=== PATIENT | female | born 1930 | race Caucasian/White ===

== ENCOUNTER 2017-09-05 20:06 | Emergency (ER) | payer MEDICARE ==
[2017-09-05 21:11] LABS: Anion Gap 17 mmol/L (10-20); BUN (Urea Nitrogen) 19 mg/dL (9.8-20.1); Calc. Creatinine Clearance 0 mL/min (70-130); Calcium 9.8 mg/dL (7.8-10.44); Carbon Dioxide 24 mmol/L (23-31); Chloride 106 mmol/L (98-107); Estimated GFR-MDRD 79
[2017-09-05] MEDS ORDERED: cloNIDine 0.1 MG TAB ONE (21:12)
--- NOTE | 2017-09-05 21:39 | CT ---
CT BRAIN WITHOUT CONTRAST: Date: 09/05/17 HISTORY: Elevated blood pressure. Headache. COMPARISON: CT brain dated 11/28/16. FINDINGS: Microvascular ischemic changes are similar. No acute territorial infarct or hemorrhage. No midline sh ift or mass effect. Mild atrophy. Paranasal sinuses and mastoids are clear. IMPRESSION: No acute intracranial abnormality. POS: [facility]
== END 2017-09-05 22:30 | disposition home or self-care (01) ==
LOC: SCSER 20:06
DX: I10 Essential (primary) hypertension (principal); E78.5 Hyperlipidemia, unspecified; F41.9 Anxiety disorder, unspecified; F32.9 Major depressive disorder, single episode, unspecified; Z85.3 Personal history of malignant neoplasm of breast; Z87.440 Personal history of urinary (tract) infections; Z79.82 Long term (current) use of aspirin; Z79.899 Other long term (current) drug therapy
CPT/HCPCS: 70450; 80048; 93005

== ENCOUNTER 2017-10-16 16:04 | Emergency (ER) | payer MEDICARE ==
[2017-10-16] MEDS ORDERED: Oseltamivir 75 MG CAP ONE (16:57)
--- NOTE | 2017-10-16 17:28 | RAD ---
PA AND LATERAL OF THE CHEST: INDICATION: Cough. IMPRESSION: No acute cardiopulmonary abnormality. COMMENTS: The examination appears somewhat similar to comparison of 01/15/2015. Surgical clips within the left axillary region are stable. Tortuosity of the aorta is similar. Thoracolumbar scoliosis is similar. No acute osseous abnormality is evident. POS: [facility]
== END 2017-10-16 17:10 | disposition home or self-care (01) ==
LOC: SCSER 16:04
DX: J10.1 Influenza due to other identified influenza virus with other respiratory manifestations (principal); K21.9 Gastro-esophageal reflux disease without esophagitis; E78.5 Hyperlipidemia, unspecified; I10 Essential (primary) hypertension; F41.9 Anxiety disorder, unspecified; F32.9 Major depressive disorder, single episode, unspecified; Z79.82 Long term (current) use of aspirin; Z79.899 Other long term (current) drug therapy
CPT/HCPCS: 71020

== ENCOUNTER 2018-01-21 07:48 | Outpatient (CLI) | payer MEDICARE ==
--- NOTE | 2018-01-21 10:08 | CT ---
HEAD CT NONCONTRAST: INDICATIONS: Auditory hallucination. COMPARISON: 09/05/2017 FINDINGS: There is mild to moderate chronic microvascular ischemic disease redemonstrated. The ventricular sys tem is stable. Mild age-related parenchymal volume loss is seen. There is no acute intracranial mas s effect or midline shift. IMPRESSION: 1. No intracranial hemorrhage or mass effect. 2. Mild to moderate chronic microvascular ischemic disease. POS: [facility]
== END 2018-01-21 07:49 | disposition home or self-care (01) ==
LOC: SCSCT 07:48
PROVIDERS: ATTEND Internal Medicine
DX: H83.3X3 Noise effects on inner ear, bilateral (principal); I67.82 Cerebral ischemia
CPT/HCPCS: 70450

== ENCOUNTER 2018-04-26 20:11 | Inpatient (IN) | payer MEDICARE ==
[2018-04-26 20:33] LABS: %Basophils 0.1 % (0.0-1.0)
[2018-04-26] MEDS ORDERED: Acetaminophen 500 MG TAB ONE (20:33)
[2018-04-26 21:08] LABS: Hemoglobin 13.3 g/dL (12.0-16.0); Red Blood Cell (RBC) Count 4.33 mill/uL (4.20-5.40); White Blood Cell (WBC) Count 15.4 thou/uL (4.8-10.8)
[2018-04-26 21:09] LABS: Mean Corpuscular Hemoglobin 30.7 pg (27.0-31.0); Mean Corpuscular Volume 87.7 fL (78.0-98.0)
[2018-04-26 21:10] LABS: Platelet Count 237 thou/uL (130-400); RBC Distribution Width 12.4 % (11.5-14.5)
[2018-04-26 21:11] LABS: %Lymphocytes 7.4 % (21.0-51.0); %Monocytes 6.7 % (0.0-10.0); %Neutrophils 84.2 % (42.0-75.0); Mean Platelet Volume 6.3 fL (7.4-10.4)
[2018-04-26 21:12] LABS: %Eosinophils 1.6 % (0.0-10.0)
[2018-04-26 21:13] LABS: #Eosinphils 0.3 thou/uL (0.0-0.7); #Lymphocytes 1.1 thou/uL (1.20-3.40)
--- NOTE | 2018-04-26 21:18 | RAD ---
AP VIEW OF THE CHEST 04/26/18 INDICATION: Fever. COMPARISON: Prior exam dated 10/16/17. IMPRESSION: There is stable cardiomegaly. No air space consolidation, pleural effusion or pneumothorax is evident . Surgical clips in the left axillary region are stable. Osseous structures are similar. POS: [facility]
[2018-04-26 21:23] LABS: ALT (SGPT) 16 U/L (8-55); AST (SGOT) 20 U/L (5-34); Albumin 4.4 g/dL (3.4-4.8); Alkaline Phosphatase 63 U/L (40-150); Anion Gap 15 mmol/L (10-20); BUN (Urea Nitrogen) 21 mg/dL (9.8-20.1); Bilirubin, Total 1.6 mg/dL (0.2-1.2); Calc. Creatinine Clearance 0 mL/min (70-130); Calcium 9.7 mg/dL (7.8-10.44); Carbon Dioxide 24 mmol/L (23-31); Chloride 104 mmol/L (98-107); Estimated GFR-MDRD 73; Globulin 3.2 g/dL (2.4-3.5); Glucose 107 mg/dL (83-110); Potassium 3.7 mmol/L (3.5-5.1); Protein, Total 7.6 g/dL (6.0-8.3); Sodium 139 mmol/L (136-145)
[2018-04-26] MEDS ORDERED: cefTRIAXone\\ROCEPHIN 2 GM in Sodium Chloride 0.9% 100 ML IVPB SCH (21:30)
[2018-04-26 21:47] LABS: Bilirubin Negative (Negative); Blood, Urine Trace (Negative); Clarity CLOUDY (Clear); Glucose, Urine (Dipstick) Negative (Negative); Leukocyte Large (Negative); Nitrite Negative (Negative); Protein, Urine (Dipstick) Negative (Neg-Trace); Specific Gravity, Urine 1.014 (1.002-1.036); Urobilinogen 0.2 mg/dL (0.2-1.0); pH, Urine 5.5 (5.0-9.0)
[2018-04-26 21:50] LABS: Bacteria/HPF None Seen HPF (None Seen); Hyaline Casts/LPF 4-6 HYALINE CAST LPF (0-3 Hyaline); Pathc Cast-AUWi Flag 0.58 (0-2.49); Squamous Epithelial 0-3 HPF (0-3)
[2018-04-27 00:08] VITALS: BMI 30.1
--- NOTE | 2018-04-27 00:21 | PDOC.FPRHP ---
- Allergies/Adverse Reactions Allergies Allergy/AdvReac Type Severity Reaction Status Date / Time Penicillins Allergy Verified 04/26/18 23:33 Sulfa (Sulfonamide Allergy Verified 01/12/15 19:36 Antibiotics) - History PMHx: PSHx: FHx: Social: - Vital signs BP: [] HR: [] RR: [] Tmax: [] Pox: []% on [] Wt: [] FMR H&P: Results - Labs Result Diagrams: 04/26/18 20:25 04/26/18 20:41 Lab results: WBC 15.4 thou/uL (4.8-10.8) H 04/26/18 20:25 Hgb 13.3 g/dL (12.0-16.0) 04/26/18 20:25 Hct 38.0 % (36.0-47.0) 04/26/18 20:25 MCV 87.7 fL (78.0-98.0) 04/26/18 20:25 Plt Count 237 thou/uL (130-400) 04/26/18 20:25 Neutrophils % 84.2 % (42.0-75.0) H 04/26/18 20:25 Sodium 139 mmol/L (136-145) 04/26/18 20:41 Potassium 3.7 mmol/L (3.5-5.1) 04/26/18 20:41 Chloride 104 mmol/L (98-107) 04/26/18 20:41 Carbon Dioxide 24 mmol/L (23-31) 04/26/18 20:41 BUN 21 mg/dL (9.8-20.1) H 04/26/18 20:41 Creatinine 0.75 mg/dL (0.6-1.1) 04/26/18 20:41 Glucose 107 mg/dL (83-110) 04/26/18 20:41 Lactic Acid 1.2 mmol/L (0.5-2.2) 04/26/18 20:41 Calcium 9.7 mg/dL (7.8-10.44) 04/26/18 20:41 Total Bilirubin 1.6 mg/dL (0.2-1.2) H 04/26/18 20:41 AST 20 U/L (5-34) 04/26/18 20:41 ALT 16 U/L (8-55) 04/26/18 20:41 Alkaline Phosphatase 63 U/L (40-150) 04/26/18 20:41 Serum Total Protein 7.6 g/dL (6.0-8.3) 04/26/18 20:41 Albumin 4.4 g/dL (3.4-4.8) 04/26/18 20:41 Urine Ketones Negative mg/dL (Negative) 04/26/18 21:30 Urine Blood Trace (Negative) H 04/26/18 21:30 Urine Nitrite Negative (Negative) 04/26/18 21:30 Ur Leukocyte Esterase Large (Negative) H 04/26/18 21:30 Urine RBC 7-10 HPF (0-3) H 04/26/18 21:30 Urine WBC Greater Than 50-TNTC HPF (0-3) H 04/26/18 21:30 Ur Squamous Epith Cells 0-3 HPF (0-3) 04/26/18 21:30 Urine Bacteria None Seen HPF (None Seen) 04/26/18 21:30 FMR H&P: Upper Level - Plan Date/Time: 04/27/18 0021 I, [], have evaluated this patient and agree with findings/plan as outlined by internal security manager resident. Pertinent changes/additions are listed here.
--- NOTE | 2018-04-27 01:07 | PDOC.FPRHP ---
- History of Present Illness Chief Complaint: Fever/chills History of Present Illness: 87 yo F with PMH of HTN and freq UTI presents with frequent urination, 102.6 F, WC of 15.4, R 22. Three days ago she was started on bactrim by Dr. Serrano ( urologist). She complains of loss of ir[place], sore throat starting today. Denies dysuria, nausea/vomiting, chest pain, SOB, cough, or congestion. - Allergies/Adverse Reactions Allergies Allergy/AdvReac Type Severity Reaction Status Date / Time Penicillins Allergy Verified 04/26/18 23:33 Sulfa (Sulfonamide Allergy Verified 01/12/15 19:36 Antibiotics) - History PMHx: HTN, Anxiety and depression, breast cancer PSHx: Hysterectomy, partial mastectomy. FHx: Mother with heart disease (unspecified), sister with valve replacement, denies fam hx of DM, denies fam hx cancer. Brother that with parkinsons. Social: Denies tobacco use, alcohol or drug use. Retired. . 2 children. Daughter is POA. - Review of Systems General: reports: fever/chills, weight/appetite/sleep changes (5 lb wt gain, thought to be due to diet) ENT: reports: other (hearing loss, R>L). denies: nasal congestion Respiratory: denies: cough, congestion, shortness of breath, exercise intolerance Cardiovascular: denies: chest pain, palpitation Gastrointestinal: reports: diarrhea, constipation (diarrhea and constipation on and off). denies: nausea, vomiting, abdominal pain Genitourinary: reports: incontinence, polyuria. denies: dysuria, discharge Skin: denies: rashes Musculoskeletal: denies: pain, tenderness, stiffness, arthritis/arthralgias Neurological: denies: numbness, seizure Psychological: reports: anxiety, depression (hx of anxiety and depression, well controlled on zoloft) - Vital signs BP: [127/65] HR: [70] RR: [18] Tmax: [102.6] Pox: [95]% on [RA] Wt: [79.6] - Physical Exam Constitutional: NAD, awake, alert and oriented HEENT: normocephalic and atraumatic, PERRLA, conjunctiva clear, no scleral icterus Neck: supple, other (LAD in cervical lymph nodes) Heart: RRR, normal S1/S2, no murmurs/rubs/gallops, pulses present, no edema Lungs: CTAB, good air movement, no rales/rhonchi, no wheezing, no retractions Abdomen: soft, non-tender, bowel sounds present Musculoskeletal: normal structure, normal tone Skin: no rash/lesions Psychiatric: normal mood and affect, other (somewhat poor historian) FMR H&P: Results - Labs Result Diagrams: 04/27/18 04:58 04/27/18 04:58 Lab results: WBC 15.4 thou/uL (4.8-10.8) H 04/26/18 20:25 Hgb 13.3 g/dL (12.0-16.0) 04/26/18 20:25 Hct 38.0 % (36.0-47.0) 04/26/18 20:25 MCV 87.7 fL (78.0-98.0) 04/26/18 20:25 Plt Count 237 thou/uL (130-400) 04/26/18 20:25 Neutrophils % 84.2 % (42.0-75.0) H 04/26/18 20:25 Sodium 139 mmol/L (136-145) 04/26/18 20:41 Potassium 3.7 mmol/L (3.5-5.1) 04/26/18 20:41 Chloride 104 mmol/L (98-107) 04/26/18 20:41 Carbon Dioxide 24 mmol/L (23-31) 04/26/18 20:41 BUN 21 mg/dL (9.8-20.1) H 04/26/18 20:41 Creatinine 0.75 mg/dL (0.6-1.1) 04/26/18 20:41 Glucose 107 mg/dL (83-110) 04/26/18 20:41 Lactic Acid 1.2 mmol/L (0.5-2.2) 04/26/18 20:41 Calcium 9.7 mg/dL (7.8-10.44) 04/26/18 20:41 Total Bilirubin 1.6 mg/dL (0.2-1.2) H 04/26/18 20:41 AST 20 U/L (5-34) 07/10/18 20:41 ALT 16 U/L (8-55) 04/26/18 20:41 Alkaline Phosphatase 63 U/L (40-150) 04/26/18 20:41 Serum Total Protein 7.6 g/dL (6.0-8.3) 04/26/18 20:41 Albumin 4.4 g/dL (3.4-4.8) 04/26/18 20:41 Urine Ketones Negative mg/dL (Negative) 04/26/18 21:30 Urine Blood Trace (Negative) H 04/26/18 21:30 Urine Nitrite Negative (Negative) 04/26/18 21:30 Ur Leukocyte Esterase Large (Negative) H 04/26/18 21:30 Urine RBC 7-10 HPF (0-3) H 04/26/18 21:30 Urine WBC Greater Than 50-TNTC HPF (0-3) H 04/26/18 21:30 Ur Squamous Epith Cells 0-3 HPF (0-3) 04/26/18 21:30 Urine Bacteria None Seen HPF (None Seen) 04/26/18 21:30 - Radiology Interpretation Chest x-ray Status: report reviewed by me (Stable cardiomegaly.) FMR H&P: A/P - Plan Sepsis 2/2 to UTI -Fever, WC 15.4, R 22 -LA 1.2 -Rocephin started -Fluid resuscitation, NS @125 ml/hr Recurrent (likely E coli) UTI, Failed outpt treatment -Failed outpt therapy on bactrim -Rocephin and gentamicin started in ED, gentamicin discontinued -Pending urine culture HTN -per pt, on metoprolol. Waiting on dosage to start. HLD MES Constipation -Miralax PRN for constipation Leukocytosis -WC 15.4, due to UTI and sepsis. will trend Anxiety/Depression -well controlled on Zoloft Code status: DNR DVT Ppx: lovenox FMR H&P: Upper Level - Pertinent history 87 yr old female with HX of recurrent UTIs, HTN, HLD here for fever and chills that started the morning on 04/26/18. She states fever or hematuria is usually her only indication that she is having a UTI. She was feeling sorta "bad" last week with urinary frequency and thought she may be having a UTI. She left urine sample on 04/22/18 which is growing E. coli. She picked up an antibiotic (unsure type) yesterday and had [address] Gomez told her to go to ER due to worsened fever. This is per patient history. She reports having a workup with Dr. Quiroz in the outpatient setting for her recurrent UTIs. She denies back pain, dysuria, hematuria, chest pain, SOB, cough, skin changes. - Pertinent findings Gen: NAD, interacting appropriately, alert and oriented to person, place, and time, situation Throat: MMM, no erythema of post pharynx Cardiac: RRR, no M/R/G Lungs: CTAB, no wheezes, rhales, rhonchi Neuro: CN 2-12 intact,no neural deficits noted, strength 5/5 in BUE/BLE MsK: no CVA tenderness - Plan Date/Time: 04/27/18 0107 I, [Giovanna Monzon], have evaluated this patient and agree with findings/plan as outlined by analysis intern resident. Pertinent changes/additions are listed here. 1. Sepsis 2/2 recurrent UTI, failed outpatient treatment -patient admitted to medical and clinically doing okay, would have to be transferred to [facility] as no tele beds available. Will cont on medical since she has not been tachycardic. -cont on rocephin -patient improved clinically -cont IV fluids -daily CBC 2. HTN -cont home meds once obtained 3. HLD -cont home meds Attending Addendum - Attending Addendum Date/Time: 04/27/18 1238 I personally evaluated the patient and discussed the management with Dr. Anurag Thomas and team. I agree with and repeated the History, Examination, Assessment and Plan documented above with any addition or exceptions noted below. Sepsis 2/2 pyelonephritis. Has responded well to EGDT. Continue to monitor.
[2018-04-27] MEDS ORDERED: Ondansetron ODT 4 MG TAB PO PRN (01:14)
[2018-04-27] MEDS ORDERED: Acetaminophen 325 MG TAB PO PRN (01:14)
[2018-04-27] MEDS ORDERED: Calcium Carbonate 500 MG ChewTAB PO PRN (01:14)
[2018-04-27] MEDS: Sodium Chloride 0.9% 1,000 ML IV SCH ×3 (02:22→17:42)
[2018-04-27 05:47] LABS: #Eosinphils 0.5 thou/uL (0.0-0.7); #Lymphocytes 1.9 thou/uL (1.20-3.40); #Monocytes 1.1 thou/uL (0.11-0.59); #Neutrophils 10.4 thou/uL (1.40-6.50); %Basophils 0.1 % (0.0-1.0); %Eosinophils 3.4 % (0.0-10.0); %Lymphocytes 13.5 % (21.0-51.0); %Monocytes 7.9 % (0.0-10.0); %Neutrophils 75.1 % (42.0-75.0); Hemoglobin 11.9 g/dL (12.0-16.0); Mean Corpuscular HGB CONC 34.5 g/dL (32.0-36.0); Mean Corpuscular Hemoglobin 30.6 pg (27.0-31.0); Mean Corpuscular Volume 88.8 fL (78.0-98.0); Platelet Count 205 thou/uL (130-400); RBC Distribution Width 12.6 % (11.5-14.5); White Blood Cell (WBC) Count 13.9 thou/uL (4.8-10.8)
[2018-04-27 05:57] LABS: ALT (SGPT) 13 U/L (8-55); AST (SGOT) 18 U/L (5-34); Albumin 3.9 g/dL (3.4-4.8); Alkaline Phosphatase 55 U/L (40-150); Anion Gap 13 mmol/L (10-20); BUN (Urea Nitrogen) 19 mg/dL (9.8-20.1); Calc. Creatinine Clearance 65 mL/min (70-130); Calcium 8.9 mg/dL (7.8-10.44); Carbon Dioxide 21 mmol/L (23-31); Chloride 112 mmol/L (98-107); Estimated GFR-MDRD 73; Globulin 2.7 g/dL (2.4-3.5); Glucose 108 mg/dL (83-110); Potassium 4.3 mmol/L (3.5-5.1); Protein, Total 6.6 g/dL (6.0-8.3); Sodium 142 mmol/L (136-145)
--- NOTE | 2018-04-27 08:39 | PDOC.EVN ---
Event Note - Event Note Event Note: Spoke with patient's daughter, Kelin, by patient request. She states the patient wants "everything done." We discussed this to include CPR, medications, and intubation for which she agreed to it all. She stated if she needs to be on life support intermediate accountant, her mother would not want that and family would decide if it came to that.
[2018-04-27] MEDS: Enoxaparin Sodium 40 MG/0.4 ML SYRINGE SC SCH (08:50)
[2018-04-27] MEDS ORDERED: Prevnar 13-Val Conj/PF 0.5 ML SYRINGE IM ONE (09:00)
[2018-04-27] MEDS: Rosuvastatin 10 MG TAB PO SCH (20:20)
--- NOTE | 2018-04-27 22:40 | CON ---
DATE OF CONSULTATION: 04/27/2018 PRIMARY CARE PHYSICIAN: Dr. Guanaco Mejía. REASON FOR CONSULT: History of recurrent urinary tract infection. HISTORY OF PRESENT ILLNESS: Ms. Chang is a pleasant 87-year-old female well known to me for history of recurrent UTI. Patient with history of PENICILLIN allergy, followed by her deputy prosecuting attorney, Dr. Juarez. She has tolerated previously subsequent Keflex without significant issues. She has minimal urgency and urge incontinence history, uses 1 pad per day, second one at night. She has no significant postvoid residual retention of concern. She is known to have severe atrophic vaginitis, grade I rectocele. She has a propensity for urine urinalysis to be contaminated due to her body habitus and severe atrophy. She was last seen by me in March 2018 with no symptoms of UTI. They desired to come off the Keflex low dose and informed to call me if breakthrough UTI. As I was out of the office last week, patient did call our office for symptoms of UTI. She did not obtain labs as advised that she had lack of transportation as her daughter was out of town. As she subsequently had a urinalysis culture done and was found to have a positive E. coli urinary tract infection and we did send out antibiotics. However, she presented last night due to history of fever of 101 per daughter. She has been provided multiple antibiotics from the emergency room and a repeat urinalysis is grossly unremarkable thus far. Blood culture negative thus far. She states that she feels significantly better with IV antibiotics provided. PAST MEDICAL HISTORY: Hypertension, hyperlipidemia, arthritis, recurrent UTI, DJD of the lumbar spine, history of breast cancer, GERD, chronic back pain, pelvic prolapse, history of [place]. PAST SURGICAL HISTORY: Total abdominal hysterectomy, breast biopsy, lumpectomy , cystoscopy, bladder wash in 09/2014 grossly unremarkable. FAMILY HISTORY: History of CVA. ALLERGIES: PENICILLIN unconfirmed. BACTRIM causes hives. REVIEW OF SYSTEMS: Ten-point review of systems, she has good family assist. CURRENT MEDICATIONS: Include Tylenol, Rocephin, Lovenox, Toprol, Zofran, Protonix, Crestor, Zoloft. PHYSICAL EXAMINATION: VITAL SIGNS: Stable. She is afebrile at 97.9, pulse 79, respirations 16, O2 sat 92, blood pressure 174/77. I's and O's bedside commode. HEENT: Grossly unremarkable. HEART: Regular rate. LUNGS: Clear. ABDOMEN: Soft, nontender, nondistended. No CVA tenderness or suprapubic tenderness is appreciated. GENITOURINARY: Demonstrates severe vaginal atrophy, no gross prolapse appreciated on today's exam. EXTREMITIES: No cyanosis, clubbing or edema. PERTINENT LABORATORIES: She is admitted with white count of 15, currently 13.9 , hemoglobin 11.9, platelets 205. Lactic acid is normal on admission. Creatinine stable at 0.75. Normal LFTs. Repeat urinalysis from the ER demonstrates 0-3 epithelial, no bacteria seen. Trace leukocytes, large leukocyte, 7-10 rbc's, greater than 50 wbc's. Repeat culture is negative thus far. Blood culture negative. PERTINENT LABS AND IMAGING: CT in 07/2014 demonstrates diverticulosis, bilateral renal cysts, largest in the right kidney 5.7 cm. There was a focus of air in the bladder, thickened bladder wall consistent with cystitis. IMPRESSION AND PLAN: Ms. Chang is an 87-year-old female well known to me with history of breast cancer, hypertension with severe vaginal atrophy with recurrent urinary tract infection. She has been worked up for anatomical pathology not of concern. She has been thoroughly informed regarding her risk factors due to severe vaginal atrophy. She was previously on low dose Keflex. I will reconsider initiating a low dose again as they desire to be off antibiotics. Currently, she is responding to antibiotics appropriately. Recommend, the patient can be discharged home if she continues to do well clinically. As her repeat urine culture is negative due to multiple antibiotics provided from the ER, I would recommend discharging the patient with outpatient Omnicef. As she previously was then cephalosporins without significant issues, I do believe it is safe enough for her to be discharged with Omnicef 300 mg one p.o. b.i.d. for 7-10 days. She may follow up with me as previous. She may be discharged, when medically stable per primary service. NIRMAL
[2018-04-27] MEDS ORDERED: diphenhydrAMINE 25 MG CAP PO PRN (22:51)
[2018-04-27] MEDS: Acetaminophen 500 MG TAB PO PRN (23:24)
[2018-04-27] MEDS ORDERED: cefTRIAXone\\ROCEPHIN 1 GM in Sodium Chloride 0.9% 100 ML IVPB SCH (23:30)
[2018-04-28] MEDS: Sodium Chloride 0.9% 1,000 ML IV SCH (02:25)
[2018-04-28 04:13] LABS: #Eosinphils 0.4 thou/uL (0.0-0.7); #Lymphocytes 1.5 thou/uL (1.20-3.40); #Neutrophils 4.1 thou/uL (1.40-6.50); %Basophils 0.2 % (0.0-1.0); %Eosinophils 5.9 % (0.0-10.0); %Lymphocytes 21.3 % (21.0-51.0); %Monocytes 14.5 % (0.0-10.0); %Neutrophils 58.2 % (42.0-75.0); Hemoglobin 10.7 g/dL (12.0-16.0); Mean Corpuscular HGB CONC 34.4 g/dL (32.0-36.0); Mean Corpuscular Hemoglobin 30.7 pg (27.0-31.0); Mean Corpuscular Volume 89.2 fL (78.0-98.0); Mean Platelet Volume 6.7 fL (7.4-10.4); Platelet Count 190 thou/uL (130-400); RBC Distribution Width 12.5 % (11.5-14.5); White Blood Cell (WBC) Count 7.1 thou/uL (4.8-10.8)
[2018-04-28 04:32] LABS: ALT (SGPT) 13 U/L (8-55); AST (SGOT) 16 U/L (5-34); Albumin 3.5 g/dL (3.4-4.8); Alkaline Phosphatase 49 U/L (40-150); Anion Gap 15 mmol/L (10-20); BUN (Urea Nitrogen) 14 mg/dL (9.8-20.1); Bilirubin, Total 0.6 mg/dL (0.2-1.2); Calc. Creatinine Clearance 74 mL/min (70-130); Calcium 8.3 mg/dL (7.8-10.44); Carbon Dioxide 19 mmol/L (23-31); Chloride 114 mmol/L (98-107); Estimated GFR-MDRD 85; Globulin 2.5 g/dL (2.4-3.5); Glucose 104 mg/dL (83-110); Potassium 3.6 mmol/L (3.5-5.1); Sodium 144 mmol/L (136-145)
--- NOTE | 2018-04-28 07:38 | PRG ---
DATE OF SERVICE: 04/28/2018 SUBJECTIVE: The patient is feeling well. Denies dysuria, suprapubic pain, CVA tenderness. PHYSICAL EXAMINATION: VITAL SIGNS: Stable. She is afebrile, blood pressure is stable. I's and O's 1720 in, 2000 out. She is negative 280 mL. ABDOMEN: Soft, nontender, nondistended. LABORATORY DATA: White count normalized to 7.1, hemoglobin stable, renal function stable with creatinine of 0.66. Repeat urine culture negative. Blood culture negative thus far. Prior urine culture on 04/22/2018 demonstrates E. coli sensitive to cephalosporins, resistant to quinolones and Bactrim. IMPRESSION AND PLAN: Ms. Pablo Chang is an 87-year-old female with history of recurrent UTI, workup negative for occult pathology. Her main risk factors are severe atrophic vaginitis, she was previously on low dose Keflex. They desired observation off of antibiotic therapy. For this acute cystitis, recommend Omnicef for 7-10 days for acute cystitis. She agrees to be back on Keflex low dose. Please provide her with 7 days of Omnicef on discharge, subsequently when she is done with her Omnicef, she should be placed on Keflex 250 mg 1 p.o. daily. She can follow up with me as planned. Call if any questions or concerns. From a urologic perspective, she may be discharged with Omnicef, Keflex low dose prophylaxis 250 mg 1 p.o. daily. MTDD
[2018-04-28] MEDS: Enoxaparin Sodium 40 MG/0.4 ML SYRINGE SC SCH (08:43)
--- NOTE | 2018-04-28 08:45 | PDOC.FM ---
- Subjective Subjective: Patient reports chills yesterday that were really scary and bothersome to her, but denies any fevers. She is having urinary frequency, but thinks its improved from before abx. She denies dysuria, suprapubic pain, N/V. - Objective MAR Reviewed: Yes Vital Signs & Weight: Vital Signs (12 hours) Temp Pulse Resp BP Pulse Ox 04/28/18 05:07 97.7 F 73 16 138/74 97 04/28/18 00:32 98 F 73 18 124/62 97 Weight Admit Weight 79.634 kg Weight 79.634 kg I&O: 04/27/18 04/28/18 04/29/18 06:59 06:59 06:59 Intake Total 1105 1720 Output Total 2000 Balance 1105 -280 Result Diagrams: 04/28/18 03:38 04/28/18 03:39 <Giovanna Kaplan - Last Filed: 04/28/18 08:43> - Objective Vital Signs & Weight: Vital Signs (12 hours) Temp Pulse Resp BP BP Pulse Ox 04/28/18 08:00 98.0 F 68 20 154/74 H 96 04/28/18 05:07 97.7 F 73 16 138/74 97 Weight Admit Weight 79.634 kg Weight 79.634 kg I&O: 04/27/18 04/28/18 04/29/18 06:59 06:59 06:59 Intake Total 1105 1720 Output Total 2000 Balance 1105 -280 Result Diagrams: 04/28/18 03:38 04/28/18 03:39 <Jonny Sherman - Last Filed: 04/28/18 12:53> Phys Exam - Physical Examination Constitutional: NAD HEENT: moist MMs Respiratory: no wheezing, no rales, no rhonchi, clear to auscultation bilateral Cardiovascular: RRR, no significant murmur, no rub Gastrointestinal: soft, non-tender, no distention, positive bowel sounds Musculoskeletal: no edema, pulses present Neurological: non-focal, moves all 4 limbs Psychiatric: normal affect, A&O x 3 Skin: normal turgor, cap refill <2 seconds <Giovanna Kaplan - Last Filed: 04/28/18 08:43> Dx/Plan (1) Sepsis Code(s): A41.9 - SEPSIS, UNSPECIFIED ORGANISM Status: Acute (2) Leukocytosis Code(s): D72.829 - ELEVATED WHITE BLOOD CELL COUNT, UNSPECIFIED Status: Acute (3) Cystitis Code(s): N30.90 - CYSTITIS, UNSPECIFIED WITHOUT HEMATURIA Status: Acute - Plan Plan: Sepsis, resolved 2/2 UTI Fever, WC 15.4, R 22, sepsis has resolved at this time with improved WBC count, afebrile, and VSS. -Rocephin -d/c'd fluids today Recurrent UTI, Failed outpt treatment Failed outpt therapy on bactrim. -Rocephin and gentamicin started in ED, gentamicin discontinued -UCx NG @ 12 hrs -Plan to switch to Omnicef 300mg BID for 7-10 days per Urology recs HTN -cont home metoprolol HLD -Cont home statin Constipation -Miralax PRN for constipation Leukocytosis, resolved -WC 15.4, due to UTI. Has resolved. Anxiety/Depression -well controlled on Zoloft, will continue. <Giovanna Kaplan - Last Filed: 04/28/18 08:43> Attending Addendum - Attending Addendum Date/Time: 04/28/18 1252 I personally evaluated the patient and discussed the management with Dr. Kaplan. I agree with and repeated the History, Examination, Assessment and Plan documented above with any addition or exceptions noted below. Pt doing very well. Anticipate d/c with appropriate antibiotics and follow up. <Jonny Sherman - Last Filed: 04/28/18 12:53>
[2018-04-28] MEDS ORDERED: Polyethylene Glycol 3350 17 GM Packet PO PRN (08:48)
[2018-04-28] MEDS: Fluticasone Propionate Nasal Spray 16 gm Bottle NASAL SCH (10:40)
[2018-04-28] MEDS ORDERED: Cefdinir 300 MG CAP PO SCH (13:00)
[2018-04-28] MEDS: Rosuvastatin 10 MG TAB PO SCH (20:56)
[2018-04-28] MEDS: Acetaminophen 500 MG TAB PO PRN (21:01)
[2018-04-29 05:24] LABS: #Eosinphils 0.4 thou/uL (0.0-0.7); #Lymphocytes 1.4 thou/uL (1.20-3.40); #Monocytes 0.8 thou/uL (0.11-0.59); #Neutrophils 4.5 thou/uL (1.40-6.50); %Basophils 0.2 % (0.0-1.0); %Eosinophils 5.3 % (0.0-10.0); %Lymphocytes 19.6 % (21.0-51.0); %Monocytes 11.6 % (0.0-10.0); %Neutrophils 63.3 % (42.0-75.0); Hemoglobin 10.9 g/dL (12.0-16.0); Mean Corpuscular HGB CONC 34.6 g/dL (32.0-36.0); Mean Corpuscular Hemoglobin 30.7 pg (27.0-31.0); Mean Corpuscular Volume 88.5 fL (78.0-98.0); Mean Platelet Volume 6.5 fL (7.4-10.4); Platelet Count 207 thou/uL (130-400); RBC Distribution Width 12.3 % (11.5-14.5); Red Blood Cell (RBC) Count 3.54 mill/uL (4.20-5.40); White Blood Cell (WBC) Count 7.2 thou/uL (4.8-10.8)
[2018-04-29 05:38] LABS: ALT (SGPT) 13 U/L (8-55); AST (SGOT) 14 U/L (5-34); Albumin 3.6 g/dL (3.4-4.8); Alkaline Phosphatase 48 U/L (40-150); Anion Gap 11 mmol/L (10-20); BUN (Urea Nitrogen) 15 mg/dL (9.8-20.1); Bilirubin, Total 0.7 mg/dL (0.2-1.2); Calc. Creatinine Clearance 76 mL/min (70-130); Calcium 9.2 mg/dL (7.8-10.44); Carbon Dioxide 27 mmol/L (23-31); Chloride 110 mmol/L (98-107); Estimated GFR-MDRD 88; Globulin 2.7 g/dL (2.4-3.5); Glucose 110 mg/dL (83-110); Potassium 3.7 mmol/L (3.5-5.1); Protein, Total 6.3 g/dL (6.0-8.3); Sodium 144 mmol/L (136-145)
[2018-04-29 05:49] VITALS: TEMP 97.9
--- NOTE | 2018-04-29 08:40 | PDOC.FM ---
- Subjective Subjective: Patient doing well, denies any fevers, chills, abdominal pain, N/V. She reports some urinary urgency and frequency, but denies dysuria. - Objective MAR Reviewed: Yes Vital Signs & Weight: Vital Signs (12 hours) Temp Pulse Resp BP Pulse Ox 04/29/18 04:00 97.9 F 59 L 18 178/79 H 95 04/29/18 02:05 96 04/29/18 01:18 98.9 F 71 18 176/72 H 95 Weight Admit Weight 79.634 kg Weight 79.634 kg I&O: 04/28/18 04/29/18 04/30/18 06:59 06:59 06:59 Intake Total 1720 800 Output Total 1999 Balance -280 800 Result Diagrams: 04/29/18 04:49 04/29/18 04:49 <Giovanna Kaplan - Last Filed: 04/29/18 08:44> - Objective Vital Signs & Weight: Vital Signs (12 hours) Temp Pulse Resp BP BP Pulse Ox 04/29/18 13:30 153/69 H 04/29/18 12:55 76 04/29/18 08:56 97.9 F 76 18 184/79 H 97 04/29/18 04:00 97.9 F 59 L 18 178/79 H 95 Weight Admit Weight 79.634 kg Weight 79.634 kg I&O: 04/28/18 04/29/18 04/30/18 06:59 06:59 06:59 Intake Total 1720 800 Output Total 2000 Balance -280 800 Result Diagrams: 04/29/18 04:49 04/29/18 04:49 <Romeo Milan - Last Filed: 04/29/18 14:27> Phys Exam - Physical Examination Constitutional: NAD HEENT: moist MMs, sclera anicteric Respiratory: no wheezing, no rales, no rhonchi, clear to auscultation bilateral Cardiovascular: RRR, no rub 3/6 systolic murmur Gastrointestinal: soft, non-tender, no distention, positive bowel sounds Musculoskeletal: no edema, pulses present Neurological: non-focal, moves all 4 limbs Psychiatric: normal affect, A&O x 3 Skin: normal turgor, cap refill <2 seconds <Giovanna Kaplan - Last Filed: 04/29/18 08:44> Dx/Plan (1) Sepsis Code(s): A41.9 - SEPSIS, UNSPECIFIED ORGANISM Status: Acute QualifierTitle: Sepsis type: Escherichia coli Qualified Code(s): A41.51 - Sepsis due to Escherichia coli [E. coli] (2) Leukocytosis Code(s): D72.829 - ELEVATED WHITE BLOOD CELL COUNT, UNSPECIFIED Status: Acute QualifierTitle: Leukocytosis type: unspecified Qualified Code(s): D72.829 - Elevated white blood cell count, unspecified (3) Pyelonephritis Code(s): N12 - TUBULO-INTERSTITIAL NEPHRITIS, NOT SPCF ACUTE OR CHRONIC Status: Acute (4) HTN (hypertension) Code(s): I10 - ESSENTIAL (PRIMARY) HYPERTENSION Status: Acute QualifierTitle: Hypertension type: essential hypertension Qualified Code( s): I10 - Essential (primary) hypertension (5) MDD (major depressive disorder) Code(s): F32.9 - MAJOR DEPRESSIVE DISORDER, SINGLE EPISODE, UNSPECIFIED Status : Acute (6) HLD (hyperlipidemia) Code(s): E78.5 - HYPERLIPIDEMIA, UNSPECIFIED Status: Acute QualifierTitle: Hyperlipidemia type: unspecified Qualified Code(s): E78.5 - Hyperlipidemia, unspecified - Plan Plan: Sepsis, resolved 2/2 pyelonephritis Fever, WC 15.4, R 22, sepsis has resolved at this time with improved WBC count, afebrile, and VSS. Rocephin initially, but has been switched to cefdinir Pyelonephritis Failed outpt therapy on bactrim. Has h/o recurrent UTI's. UCx from ER visit a few days prior to admission showed E. coli resistant to cipro and bactrim -Rocephin and gentamicin started in ED, was treated with rocephin for 2 days, but has been switched to Cefdinir on 04/28 with plans for 10 days of outpatient therapy with this -UCx NG @ 12 hrs -f/u with urology outpatient HTN -cont home metoprolol HLD -Cont home statin Constipation -Miralax PRN for constipation Leukocytosis, resolved -WC 15.4 intially 2/2 to pyelonephritis. Has resolved. Anxiety/Depression -well controlled on Zoloft, will continue. Dispo: plan for d/c home today on cefdinir <Giovanna Kaplan - Last Filed: 04/29/18 08:44> Attending Addendum - Attending Addendum Date/Time: 04/29/18 6061 I personally evaluated the patient and discussed the management with Dr. Kaplan I agree with the History, Examination, Assessment and Plan documented above with any addition or exceptions noted below.Patient is stable for dismissal. <Romeo Milan - Last Filed: 04/29/18 14:27>
[2018-04-29] MEDS ORDERED: Cefdinir 300 MG CAP PO SCH (09:00)
[2018-04-29] MEDS: Enoxaparin Sodium 40 MG/0.4 ML SYRINGE SC SCH (09:15)
[2018-04-29] MEDS: Fluticasone Propionate Nasal Spray 16 gm Bottle NASAL SCH (09:24)
[2018-04-29] MEDS ORDERED: hydrALAZINE 20 MG/ML VIAL SLOW IVP SCH (09:30)
[2018-04-29 14:26] VITALS: BP 153/69
--- NOTE | 2018-05-01 22:33 | DIS-2 ---
DATE OF ADMISSION: 04/27/2018 DATE OF DISCHARGE: 04/29/2018 ADMITTING ATTENDING: Luz Sanchez M.D. DISCHARGE ATTENDING: Romeo Milan MD ADMITTING RESIDENT: Adamaris Thomas MD DISCHARGE RESIDENT: Giovanna Kaplan MD CONSULTATIONS: Dr. Gomez with Urology. PROCEDURES: None. PRIMARY DIAGNOSES: 1. Sepsis. 2. Pyelonephritis. 3. Leukocytosis. SECONDARY DIAGNOSES: 1. Hypertension. 2. Hyperlipidemia. 3. Atrophic vaginitis. 4. Constipation. 5. Anxiety and depression. DISCHARGE MEDICATIONS: 1. Cefdinir 300 mg p.o. q. 12 hours for 9 days. 2. Cephalexin 250 mg p.o. daily to be started after completion of the cefdinir. 3. Aspirin 81 mg p.o. daily. 4. Nexium 40 mg p.o. q.a.m. 5. Metoprolol succinate 25 mg extended release 20 p.o. b.i.d. 6. MiraLax 17 grams p.o. daily p.r.n. constipation. 7. Rosuvastatin 10 mg p.o. daily. 8. Sertraline 50 mg p.o. daily. DISCONTINUED MEDICATIONS: None. HISTORY OF PRESENT ILLNESS AND HOSPITAL COURSE: This is an 87-year-old female with past medical hist ory of atrophic vaginitis and recurrent UTIs, presents to the ER with sepsis secondary to urinary tra ct infection. The patient was found to have an initial white blood cell count of 15.4. The patient had been seen in the clinic on 04/22/2018 and the patient had been given Bactrim empirically prior to the results of that by her PCP. However, the patient's symptoms had continued to get worse, and so she presented to the ER. The patient was previously on a low dose prophylactic antibiotic for her re current urinary tract infections; however, has not been on one recently. The patient was started on Rocephin and showed significant clinical improvement. The patient sees Dr. Gomez from Urology, who discussed starting her back on a prophylactic medication after she recovers from this urinary tr act infection. The patient's white blood cell count trended down to 13.9 and then 7.1 after fluids a nd antibiotics. The patient's urine culture from this hospitalization grew 25,000-50,000 mixed skin and enteric napoleon. Of note, the patient also notes some elevated blood pressures during her hospitalization. She is onl y on metoprolol for blood pressure control at home. The patient was given a dose of hydralazine to h elp improve her blood pressure, which improved it to 150/69. The patient was recommended to discuss her blood pressure control with her primary care physician, as the patient reported that her blood pr essure is not usually this high at home. I did not want to drop her blood pressure too low and put h er at risk for falls at this time. DISPOSITION: Stable. DISCHARGE INSTRUCTIONS: 1. Location: Home. 2. Diet: Heart healthy. 3. Activity: As tolerated. 4. Follow up with Dr. Mejía in [address] Gomez.
== END 2018-04-29 14:02 | disposition home or self-care (01) | DRG 872 ==
LOC: ERS 20:11 → T4-A 22:07
PROVIDERS: ADMIT Student in an Organized Health Care Education/Training Program; ATTEND Student in an Organized Health Care Education/Training Program
DX: A41.51 Sepsis due to Escherichia coli [E. coli] (principal); N12 Tubulo-interstitial nephritis, not specified as acute or chronic; K57.00 Diverticulitis of small intestine with perforation and abscess without bleeding; I10 Essential (primary) hypertension; E78.5 Hyperlipidemia, unspecified; N95.2 Postmenopausal atrophic vaginitis; F41.8 Other specified anxiety disorders; F32.9 Major depressive disorder, single episode, unspecified; K59.00 Constipation, unspecified; Z66 Do not resuscitate; Z88.0 Allergy status to penicillin; Z82.49 Family history of ischemic heart disease and other diseases of the circulatory system; Z82.61 Family history of arthritis; Z80.3 Family history of malignant neoplasm of breast; Z85.3 Personal history of malignant neoplasm of breast
CPT/HCPCS: 36415; 36416; 71045; 80053; 81003; 81015; 83605; 85025; 87040; 87086; 90471; 90670; 96361; 96365; 96375; A4216; G0009; J0360; J0696; J1580; J1650; J7050

== ENCOUNTER 2018-08-11 17:44 | Observation (INO) | payer MEDICARE ==
[2018-08-11 18:50] LABS: #Basophils 0.1 thou/uL (0.0-0.2); #Eosinphils 0.2 thou/uL (0.0-0.7); #Lymphocytes 2.3 thou/uL (1.20-3.40); #Monocytes 0.8 thou/uL (0.11-0.59); #Neutrophils 5.7 thou/uL (1.40-6.50); %Basophils 1.2 % (0.0-1.0); %Eosinophils 2.4 % (0.0-10.0); %Lymphocytes 25.5 % (21.0-51.0); %Monocytes 8.7 % (0.0-10.0); %Neutrophils 62.3 % (42.0-75.0); Mean Corpuscular HGB CONC 32.8 g/dL (32.0-36.0); Mean Corpuscular Hemoglobin 28.1 pg (27.0-31.0); Mean Corpuscular Volume 85.5 fL (78.0-98.0); Mean Platelet Volume 6.4 fL (7.4-10.4); Platelet Count 217 thou/uL (130-400); RBC Distribution Width 12.6 % (11.5-14.5); Red Blood Cell (RBC) Count 4.98 mill/uL (4.20-5.40); White Blood Cell (WBC) Count 9.1 thou/uL (4.8-10.8)
[2018-08-11 19:08] LABS: ALT (SGPT) 18 U/L (8-55); AST (SGOT) 26 U/L (5-34); Albumin 4.6 g/dL (3.4-4.8); Alkaline Phosphatase 57 U/L (40-150); Anion Gap 19 mmol/L (10-20); BUN (Urea Nitrogen) 27 mg/dL (9.8-20.1); Bilirubin, Total 0.9 mg/dL (0.2-1.2); Calc. Creatinine Clearance 0 mL/min (70-130); Calcium 10.1 mg/dL (7.8-10.44); Carbon Dioxide 19 mmol/L (23-31); Chloride 107 mmol/L (98-107); Estimated GFR-MDRD 54; Globulin 3.8 g/dL (2.4-3.5); Glucose 112 mg/dL (83-110); Lipase 6 U/L (8-78); Potassium 4.3 mmol/L (3.5-5.1); Protein, Total 8.4 g/dL (6.0-8.3); Sodium 141 mmol/L (136-145)
[2018-08-11 19:10] LABS: Bilirubin Negative (Negative); Blood, Urine Large (Negative); Clarity Cloudy (Clear); Glucose, Urine (Dipstick) Negative (Negative); Leukocyte Large (Negative); Nitrite Positive (Negative); Protein, Urine (Dipstick) 100 mg/dL (Neg-Trace); Urobilinogen 0.2 mg/dL (0.2-1.0); pH, Urine 5.5 (5.0-9.0)
[2018-08-11 19:12] LABS: CKMB 2.5 ng/mL (0-6.6); Troponin I Less than 0.010 ng/mL (< 0.028)
[2018-08-11 19:14] LABS: Bacteria/HPF 2+ HPF (None Seen); Squamous Epithelial 0-3 HPF (0-3); WBC/HPF 21-50 HPF (0-3)
[2018-08-11 19:15] LABS: Renal Epithelial 0-3 HPF (0-3)
[2018-08-11] MEDS ORDERED: cefTRIAXone\\ROCEPHIN 1 GM VIAL ONE (19:25)
[2018-08-11] MEDS ORDERED: Sodium Chloride 0.9% 100 ML ONE (19:27)
--- NOTE | 2018-08-11 20:03 | RAD ---
PORTABLE AP CHEST X-RAY 08/11/18 HISTORY: Chest pain. COMPARISON: 04/26/18. FINDINGS: The cardiac silhouette remains mildly enlarged. Pulmonary vasculature is within normal limits. There is linear scarring again present at the left lung base. The lungs are otherwise clear. Surgical clips again overlie the left axillary region. IMPRESSION: 1. No acute cardiopulmonary process. 2. Mild cardiomegaly. POS: [facility]
[2018-08-11] MEDS ORDERED: Sodium Chloride 0.9% 1,000 ML IV SCH (23:14)
[2018-08-11] MEDS ORDERED: Ondansetron PF 4 MG/2 ML Vial IVP PRN (23:14)
[2018-08-11] MEDS ORDERED: Ondansetron ODT 4 MG TAB SL PRN (23:14)
[2018-08-11 23:16] VITALS: BMI 28.5
--- NOTE | 2018-08-11 23:17 | PDOC.FPRHP ---
- History of Present Illness Chief Complaint: weakness History of Present Illness: 87 yo F with PMH of recurrent UTIs on ppx cefdinir is transfer from [facility] ED for dizziness. This afternoon she started feeling weak so went home and check her BP which was 90/60 (low for her) and pulse in 130s. She thought she may be getting another UTI so went to the [facility] ED. She has been hospitalized multiple times for severe UTIs and is on prophylactic cefdinir. At the time of sxs she denied fevers, dysuria, abdominal or flank pain. ED Course: NS bolus, rocephin x1 - Allergies/Adverse Reactions Allergies Allergy/AdvReac Type Severity Reaction Status Date / Time Penicillins Allergy Verified 08/11/18 23:44 Sulfa (Sulfonamide Allergy Verified 08/11/18 23:44 Antibiotics) - Home Medications Medication Instructions Recorded Confirmed Type Aspirin [Aspirin Chewable Tablet] 81 mg PO DAILY 04/27/18 04/27/18 History Esomeprazole Magnesium [NexIUM] 40 mg PO QAM-WM 04/27/18 04/27/18 History Metoprolol Succinate [Toprol Xl] 25 mg PO BID 04/27/18 04/27/18 History Rosuvastatin Calcium 10 mg PO DAILY 04/27/18 04/27/18 History Sertraline HCl 50 mg PO DAILY 04/27/18 04/27/18 History Cefdinir 300 mg PO Q12HR #18 capsule 04/28/18 Rx Polyethylene Glycol 3350 [Miralax] 17 gm PO DAILYPRN PRN pk 04/28/18 Rx Cephalexin [Keflex] 250 mg PO DAILY #30 cap 05/01/18 Rx - History PMHx: Recurrent UTIs, prolapsed bladder, HTN, Anxiety and depression, breast cancer PSHx: Hysterectomy, partial mastectomy. FHx: Mother with heart disease (unspecified), sister with valve replacement, denies fam hx of DM, denies fam hx cancer. Brother that with parkinsons. Social: Denies tobacco use, alcohol or drug use. Retired. . 2 children. Daughter is POA. - Review of Systems General: denies: fever/chills, weight/appetite/sleep changes Eyes: denies: vision changes ENT: denies: nasal congestion, rhinorrhea Respiratory: denies: cough, congestion, shortness of breath Cardiovascular: denies: chest pain, palpitation Gastrointestinal: denies: nausea, vomiting, diarrhea Genitourinary: denies: incontinence, dysuria, discharge Skin: denies: lesions, jaundice Musculoskeletal: denies: tenderness, stiffness Neurological: reports: weakness. denies: syncope, seizure Psychological: denies: anxiety, depression - Vital signs BP: [183/81] HR: [63] RR: [14] Tmax: [97.8] Pox: [94]% on [RA] Wt: [75] - Physical Exam Constitutional: NAD, awake, alert and oriented HEENT: normocephalic and atraumatic, PERRLA, EOMI Neck: supple, FROM Chest: no-tender to palpation, no lesions Heart: RRR, normal S1/S2 Lungs: CTAB, no respiratory distress Abdomen: soft, non-tender, no masses/distention Musculoskeletal: normal structure Neurological: no focal deficit, CN II-XII intact Skin: no rash/lesions, capillary refill <2 seconds Heme/Lymphatic: no unusual bruising or bleeding Psychiatric: normal mood and affect FMR H&P: Results - Labs Result Diagrams: 08/12/18 04:21 08/12/18 04:21 Lab results: WBC 9.1 thou/uL (4.8-10.8) 08/11/18 18:25 Hgb 14.0 g/dL (12.0-16.0) 08/11/18 18:25 Hct 42.6 % (36.0-47.0) 08/11/18 18:25 MCV 85.5 fL (78.0-98.0) 08/11/18 18:25 Plt Count 217 thou/uL (130-400) 08/11/18 18:25 Neutrophils % 62.3 % (42.0-75.0) 08/11/18 18:25 Sodium 141 mmol/L (136-145) 08/11/18 18:25 Potassium 4.3 mmol/L (3.5-5.1) 08/11/18 18:25 Chloride 107 mmol/L (98-107) 08/11/18 18:25 Carbon Dioxide 19 mmol/L (23-31) L 08/11/18 18:25 BUN 27 mg/dL (9.8-20.1) H 08/11/18 18:25 Creatinine 0.97 mg/dL (0.6-1.1) 08/11/18 18:25 Glucose 112 mg/dL (83-110) H 08/11/18 18:25 Calcium 10.1 mg/dL (7.8-10.44) 08/11/18 18:25 Total Bilirubin 0.9 mg/dL (0.2-1.2) 08/11/18 18:25 AST 26 U/L (5-34) 08/11/18 18:25 ALT 18 U/L (8-55) 08/11/18 18:25 Alkaline Phosphatase 57 U/L (40-150) 08/11/18 18:25 Creatine Kinase 91 U/L (29-168) 08/11/18 18:25 CK-MB (CK-2) 2.5 ng/mL (0-6.6) 08/11/18 18:25 B-Natriuretic Peptide 95.9 pg/mL (0-100) 08/11/18 18:25 Serum Total Protein 8.4 g/dL (6.0-8.3) H 08/11/18 18:25 Albumin 4.6 g/dL (3.4-4.8) 08/11/18 18:25 Lipase 6 U/L (8-78) L 08/11/18 18:25 Urine Ketones Negative mg/dL (Negative) 08/11/18 19:08 Urine Blood Large (Negative) H 08/11/18 19:08 Urine Nitrite Positive (Negative) H 08/11/18 19:08 Ur Leukocyte Esterase Large (Negative) H 08/11/18 19:08 Urine RBC 11-20 HPF (0-3) H 08/11/18 19:08 Urine WBC 21-50 HPF (0-3) H 08/11/18 19:08 Ur Squamous Epith Cells 0-3 HPF (0-3) 08/11/18 19:08 Urine Bacteria 2+ HPF (None Seen) H 08/11/18 19:08 FMR H&P: A/P - Problem List (1) UTI (urinary tract infection) Current Visit: Yes Status: Acute (2) HLD (hyperlipidemia) Current Visit: No Status: Acute Code(s): E78.5 - HYPERLIPIDEMIA, UNSPECIFIED Qualifiers: Hyperlipidemia type: unspecified Qualified Code(s): E78.5 - Hyperlipidemia , unspecified (3) HTN (hypertension) Current Visit: No Status: Acute Code(s): I10 - ESSENTIAL (PRIMARY) HYPERTENSION Qualifiers: Hypertension type: essential hypertension Qualified Code(s): I10 - Essential (primary) hypertension (4) MDD (major depressive disorder) Current Visit: No Status: Acute Code(s): F32.9 - MAJOR DEPRESSIVE DISORDER, SINGLE EPISODE, UNSPECIFIED - Plan Disposition/LOS: 87 yo F with hx of recurrent UTIs with UTI w/ failed outpt. tx 1. UTI with failed outpatient treatment -no sepsis criteria met. stable. -recurrent UTIs likely 2/2 prolapsed bladder (per pt) -patient had been on cefdinir outpt from urologist -possibility there there is change in organism species/resistance/ sensitivities. will obtain new ucx to reassess and tailor abx as needed -continue rocephin & macrobid, prior cultures show sensitivity to these meds -continue mIVF -consider discussed with urologist change in ppx abx 2. HTN -continue home meds 3. HLD -continue home meds 4. Depression/anxiety -continue home meds discussed with dr. toribio FMR H&P: Upper Level - Pertinent history 87F with PMH of recurrent UTI's who was evaluated at [facility] ED for near syncope and cloudy urine. She reports not feeling well today. This afternoon she "felt her blood pressure get low". This was followed by dizziness but no syncopal episode or LOC. She came to the ED at that point for further evaluation. She endorses normal PO intake over the last several days and denies dysuria and hematuria. Seen by Urology, Dr. Alcazar, for her recurrent UTIs. Work up for anatomical pathology has been negative. Last urine culture from April was resistant to Cipro and Bactrim. Grew E. coli. 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 UTI: hx of recurrent infections on OP PPX abx. Will continue the Rocephin and macrobid. Urine culture pending. Hemodynamically stable, does not meet sepsis criteria. S/p 1L NS bolus, will continue maintenance IVF. Will need OP f/ u with her Urologist to discuss altering PPX regimen. 2. HTN: continue home medications 3. HLD: continue home statin 4. Depression/Anxiety: continue home medication I, Jun Mckeon, have evaluated this patient and agree with findings/plan as outlined by paid internship resident. Pertinent changes/additions are listed here. Attending Addendum - Attending Addendum Date/Time: 08/12/18 1026 I personally evaluated the patient and discussed the management with Dr. Cintron. I agree with the History, Examination, Assessment and Plan documented above with any addition or exceptions noted below. 87 y.o. WF with h/o Bladder Prolapse and chronic urinary colonization p/w hypotension/tachycardia responsive to IVF. The patient was given IV Rocephin for a UA that appeared to have an infection. She has been on chronic suppressive therapy with keflex. Her prior Urine Cultures have grown E. coli resistant to Fluoroquinolones and Bactrim. Will d/c home today on Cefdinir and have the pt f/u Wednesday with Dr. Mejía and this next month with her urologist.
[2018-08-11] MEDS ORDERED: Acetaminophen 325 MG TAB PO PRN (23:55)
[2018-08-12] MEDS: Sodium Chloride 0.9% 1,000 ML IV SCH ×3 (00:27→08:27)
[2018-08-12] MEDS ORDERED: Polyethylene Glycol 3350 17 GM Packet PO PRN (03:35)
[2018-08-12 05:11] LABS: #Eosinphils 0.3 thou/uL (0.0-0.7); #Lymphocytes 2.2 thou/uL (1.20-3.40); #Monocytes 0.9 thou/uL (0.11-0.59); #Neutrophils 3.8 thou/uL (1.40-6.50); %Basophils 0.3 % (0.0-1.0); %Eosinophils 3.6 % (0.0-10.0); %Lymphocytes 30.1 % (21.0-51.0); %Monocytes 12.4 % (0.0-10.0); %Neutrophils 53.5 % (42.0-75.0); Hemoglobin 11.4 g/dL (12.0-16.0); Mean Corpuscular HGB CONC 33.5 g/dL (32.0-36.0); Mean Corpuscular Hemoglobin 29.5 pg (27.0-31.0); Mean Corpuscular Volume 88.1 fL (78.0-98.0); Mean Platelet Volume 6.9 fL (7.4-10.4); Platelet Count 246 thou/uL (130-400); RBC Distribution Width 12.5 % (11.5-14.5); Red Blood Cell (RBC) Count 3.87 mill/uL (4.20-5.40); White Blood Cell (WBC) Count 7.1 thou/uL (4.8-10.8)
[2018-08-12 05:27] LABS: Anion Gap 12 mmol/L (10-20); BUN (Urea Nitrogen) 25 mg/dL (9.8-20.1); Calc. Creatinine Clearance 63 mL/min (70-130); Calcium 8.6 mg/dL (7.8-10.44); Carbon Dioxide 21 mmol/L (23-31); Chloride 112 mmol/L (98-107); Estimated GFR-MDRD 75; Glucose 99 mg/dL (83-110); Potassium 3.7 mmol/L (3.5-5.1); Sodium 141 mmol/L (136-145)
[2018-08-12] MEDS ORDERED: Rosuvastatin 10 MG TAB PO SCH (09:00)
[2018-08-12] MEDS ORDERED: Nitrofurantoin Monohyd/M-Cryst 100 MG CAP PO SCH (09:00)
[2018-08-12 11:34] VITALS: BP 175/73; TEMP 97.8
--- NOTE | 2018-08-12 13:36 | DIS-2 ---
DATE OF ADMISSION: 08/11/2018 DATE OF DISCHARGE: 08/12/2018 ADMITTING RESIDENT: Dr. Jena Cintron DISCHARGE RESIDENT: Dr. Giovanna Kaplan ADMITTING ATTENDING: Leobardo Torres M.D. DISCHARGE ATTENDING: Leobardo Torres M.D.. CONSULTATIONS: None. PROCEDURES: None. PRIMARY DIAGNOSES: 1. Acute cystitis. 2. Hypertension. 3. Tachycardia. 4. Dehydration. SECONDARY DIAGNOSES: 1. Recurrent urinary tract infections. 2. Bladder prolapse. 3. Hypertension. 4. Hyperlipidemia. 5. Depression. 6. Anxiety. DISCHARGE MEDICATIONS: 1. Cefdinir 300 mg p.o. q.12h. for 6 days. 2. Keflex 250 mg p.o. daily to be started after the cefdinir is completed. 3. Aspirin 81 mg p.o. daily. 4. Nexium 40 mg p.o. q.a.m. with meals. 5. MiraLax 17 grams p.o. daily p.r.n. constipation. 6. Simvastatin 10 mg p.o. daily. 7. Sertraline 50 mg p.o. daily. 8. Amlodipine 2.5 mg p.o. at bedtime. 9. Metoprolol succinate 25 mg p.o. b.i.d. DISCONTINUED MEDICATIONS: None. HISTORY OF PRESENT ILLNESS AND HOSPITAL COURSE: This is an 87-year-old female with past medical hist ory of bladder prolapse and recurrent urinary tract infections who presented to the ER due to hypoten ratna and tachycardia. The patient was found to have a UA that showed positive nitrites, large leukoc yte esterase and 2+ bacteria. The patient has a history of recurrent UTIs that generally grew E. col i resistant to Bactrim and fluoroquinolones. The patient has been on chronic suppression therapy wit h Keflex 250 mg p.o. daily. The patient sees Dr. Gomez with Urology and reports that she has a followup appointment within about a month with her. The patient's hypotension and tachycardia respo nded very well to 1 fluid bolus. The patient, by the time she was on the floor, felt completely back to normal and was having no signs of dysuria, suprapubic pressure or back pain, increased urinary fr equency. The patient was never febrile. The patient never had an elevated white blood cell count. The case was discussed with both Dr. Mejía and Dr. Gomez and it was agreed for the patient t o be discharged home on cefdinir and to resume her Keflex at the end of the course of cefdinir. The patient will follow up with Dr. Mejía in his clinic early this next week and he will follow up on the urine culture to determine if that treatment is adequate. The patient will continue her routine follow up with Dr. Gomez. The patient is status post 1 dose of Rocephin as well. DISPOSITION: Stable. DISCHARGE INSTRUCTIONS: 1. Location: Home. 2. Diet: Heart healthy. 3. Activity: As tolerated. 4. Followup: Follow up with Dr. Mejía within 3-[address] Gomez within 1 month.
[2018-08-12] MEDS ORDERED: cefTRIAXone\\ROCEPHIN 1 GM in Sodium Chloride 0.9% 100 ML IVPB SCH (15:00)
== END 2018-08-12 14:06 | disposition home or self-care (01) ==
LOC: SCSER 17:44 → 2SW 19:30
PROVIDERS: ADMIT Family Medicine; ATTEND Family Medicine
DX: N30.00 Acute cystitis without hematuria (principal); E78.5 Hyperlipidemia, unspecified; I10 Essential (primary) hypertension; F32.9 Major depressive disorder, single episode, unspecified; E86.0 Dehydration; F41.9 Anxiety disorder, unspecified; Z79.82 Long term (current) use of aspirin; Z79.899 Other long term (current) drug therapy; Z88.0 Allergy status to penicillin; Z88.2 Allergy status to sulfonamides
CPT/HCPCS: 71045; 80048; 82550; 82553; 83690; 83880; 84484; 85025; 87077; 87086; 87186; 93005; 96361 ×2; 96365; 99285; G0378; 36415; 80053; 81003; 81015; 84443; J0696; J7050

== ENCOUNTER 2018-09-12 15:30 | Emergency (ER) | payer MEDICARE ==
--- NOTE | 2018-09-12 16:40 | RAD ---
RIGHT ANKLE THREE VIEWS: History: Right ankle pain. FINDINGS/IMPRESSION: The ankle mortise is maintained. Soft tissue swelling is present. No fracture, dislocation, or bony d estruction is identified. POS: [facility]
--- NOTE | 2018-09-12 16:41 | RAD ---
THREE VIEW RIGHT FOOT: Indication: Pain, edema. FINDINGS: There is evidence to indicate prior osteotomy of the second digit centered about the PIP joint. Corre late with history. 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 No dislocation of lisfranc joint. There is mild soft tissue prominence. IMPRESSION: Chronic findings of the right foot are indicated, without evidence of an acute fracture. POS: [facility]
== END 2018-09-12 17:02 | disposition home or self-care (01) ==
LOC: SCSER 15:30
DX: M79.89 Other specified soft tissue disorders (principal); M25.571 Pain in right ankle and joints of right foot; K21.9 Gastro-esophageal reflux disease without esophagitis; E78.5 Hyperlipidemia, unspecified; I10 Essential (primary) hypertension; F41.9 Anxiety disorder, unspecified; F32.9 Major depressive disorder, single episode, unspecified; Z79.82 Long term (current) use of aspirin; Z79.899 Other long term (current) drug therapy

== ENCOUNTER 2018-09-16 19:49 | Emergency (ER) | payer MEDICARE ==
[2018-09-16 20:15] LABS: Bilirubin Small (Negative); Blood, Urine Large (Negative); Clarity Hazy (Clear); Glucose, Urine (Dipstick) Negative (Negative); Leukocyte Moderate (Negative); Nitrite Negative (Negative); Protein, Urine (Dipstick) 100 mg/dL (Neg-Trace)
[2018-09-16 20:22] LABS: Bacteria/HPF 2+ HPF (None Seen)
[2018-09-16] MEDS ORDERED: Cipro 250 MG TAB ONE (20:47)
== END 2018-09-16 20:52 | disposition home or self-care (01) ==
LOC: SCSER 19:49
DX: N30.00 Acute cystitis without hematuria (principal); I10 Essential (primary) hypertension; Z79.899 Other long term (current) drug therapy
CPT/HCPCS: 81003; 81015; 87086; 99283

== ENCOUNTER 2018-09-25 18:12 | Inpatient (IN) | payer MEDICARE ==
[2018-09-25 19:31] LABS: Hemoglobin 11.9 g/dL (12.0-16.0); Mean Corpuscular Hemoglobin 28.8 pg (27.0-31.0); Mean Corpuscular Volume 82.3 fL (78.0-98.0); Mean Platelet Volume 5.1 fL (7.4-10.4); Platelet Count 266 thou/uL (130-400); RBC Distribution Width 12.2 % (11.5-14.5); Red Blood Cell (RBC) Count 4.14 mill/uL (4.20-5.40); White Blood Cell (WBC) Count 21.1 thou/uL (4.8-10.8)
[2018-09-25 19:32] LABS: Band 2 % (5-11); Eosinophils 1 % (0-10); Lymphocytes 7 % (21-51); MDiff Complete? YES; Monocytes 3 % (0-10); Neutrophil 85 % (42-75); PLT Morphology Comment Appears Adequate; Reactive Lymphocytes 2 % (0-10)
[2018-09-25 19:39] LABS: ALT (SGPT) 15 U/L (8-55); AST (SGOT) 18 U/L (5-34); Alkaline Phosphatase 60 U/L (40-150); Anion Gap 14 mmol/L (10-20); BUN (Urea Nitrogen) 18 mg/dL (9.8-20.1); Bilirubin, Total 1.5 mg/dL (0.2-1.2); Calc. Creatinine Clearance 0 mL/min (70-130); Calcium 9.3 mg/dL (7.8-10.44); Carbon Dioxide 24 mmol/L (23-31); Chloride 102 mmol/L (98-107); Estimated GFR-MDRD 74; Globulin 3.4 g/dL (2.4-3.5); Glucose 135 mg/dL (83-110); Protein, Total 7.4 g/dL (6.0-8.3); Sodium 137 mmol/L (136-145)
[2018-09-25 19:41] LABS: Bilirubin Negative (Negative); Blood, Urine Moderate (Negative); Clarity Cloudy (Clear); Glucose, Urine (Dipstick) Negative (Negative); Leukocyte Small (Negative); Nitrite Negative (Negative); Protein, Urine (Dipstick) 100 mg/dL (Neg-Trace); Specific Gravity, Urine 1.015 (1.005-1.030)
[2018-09-25 19:43] LABS: Bacteria/HPF 2+ HPF (None Seen); RBC/HPF 21-50 HPF (0-3); Renal Epithelial 0-3 HPF (0-3)
[2018-09-25] MEDS ORDERED: cefTRIAXone\\ROCEPHIN 2 GM VIAL ONE (19:43)
[2018-09-25] MEDS ORDERED: Acetaminophen 500 MG TAB ONE (19:43)
--- NOTE | 2018-09-25 19:49 | RAD ---
PA AND LATERAL CHEST X-RAY: 09/25/2018 HISTORY: Cough for two to three days. Weakness. COMPARISON: 10/16/2017 FINDINGS: Surgical clips again overly the left axillary region. The left breast shadow is smaller in size comp ared to the right, likely related to a prior lumpectomy. The cardiac silhouette is borderline enlarg ed. The pulmonary vasculature is within normal limits. There is mild symmetric biapical pleural and parenchymal scarring present. Linear densities are present at the left lung base, which may be rela zoya to scarring and/or atelectasis. The lungs otherwise appear clear. 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 IMPRESSION: Atelectasis and/or scarring, left lung base, which has increased from prior study. There is otherwis e no acute cardiopulmonary process. POS: [facility]
[2018-09-25 19:53] LABS: Lipase Less than 4 U/L (8-78); Potassium 2.8 mmol/L (3.5-5.1)
[2018-09-25] MEDS ORDERED: Potassium Chloride 20 MEQ TAB ONE (20:15)
[2018-09-25] MEDS ORDERED: Azithromycin 500 MG VIAL ONE (20:16)
--- NOTE | 2018-09-25 21:13 | PDOC.FPRHP ---
- History of Present Illness Chief Complaint: UTI, fever History of Present Illness: Ms. Chang is 87 yo F with PMH HTN, bladder prolapse, recurrent UTIs presents with CC of UTI and fever. She has a long history of recurrent UTIs, managed by urologist, Dr. Gomez. Has previously been on suppressive daily Keflex, though she said that didn't work and she no longer on it. Reports cloudy urine started yesterday. Today she started having fever. Denies dysuria, SOB, CP. This is typical in presentation to previous UTIs. Notes she has felt bad overall , not been as active. Additionally notes non-productive cough for 2-3 days and some mild upper back pain. Currently feeling better. Diagnosed with UTI 09/16, started on cipro, culture reportedly resistant to this , then Wednesday prescribed macrobid by urology. Patient had been taken macrobid and cipro since then. Notes history of PCN allergy, test dose of rocephin given in ED which was tolerated, then given full dose. ED Course: rocephin, azithromycin, tylenol, 40meq K+ - Allergies/Adverse Reactions Allergies Allergy/AdvReac Type Severity Reaction Status Date / Time Penicillins Allergy Verified 09/25/18 22:01 Sulfa (Sulfonamide Allergy Verified 09/25/18 22:01 Antibiotics) - Home Medications Medication Instructions Recorded Confirmed Type Aspirin [Aspirin Chewable Tablet] 81 mg PO DAILY 04/27/18 09/25/18 History Esomeprazole Magnesium [NexIUM] 40 mg PO QAM-WM 04/27/18 09/25/18 History Rosuvastatin Calcium 10 mg PO DAILY 04/27/18 09/25/18 History Sertraline HCl 50 mg PO DAILY 04/27/18 09/25/18 History Polyethylene Glycol 3350 [Miralax] 17 gm PO DAILYPRN PRN pk 04/28/18 09/25/18 Rx Amlodipine [Norvasc] 2.5 mg PO HS 08/12/18 09/25/18 History Metoprolol Succinate [Toprol XL] 25 mg PO BID 08/12/18 09/25/18 History Acetaminophen [Tylenol] 650 mg PO HS 09/25/18 09/25/18 History Estradiol [Estrace 0.01% Vaginal 1 gm VAG SEEPHYS 09/25/18 09/25/18 History Cream] diphenhydrAMINE HCl [Benadryl 25 mg PO HS 09/25/18 09/25/18 History Allergy] - History PMHx: HTN, HLD, bladder prolapse, arthritis, hx of breast cancer, depression PSHx: hysterectomy, ovarian tumor removed, L breast lumpectomy for cancer, b/l knee surgery FHx: non contributory Social: Lives alone in independent living senior apartment community. Active and plays bingo. No tobacco, alcohol, or drug use. - Review of Systems General: reports: fever/chills, fatigue ENT: denies: nasal congestion, rhinorrhea Respiratory: reports: cough. denies: congestion, shortness of breath Cardiovascular: denies: chest pain, edema Gastrointestinal: denies: nausea, vomiting, diarrhea, abdominal pain Genitourinary: denies: incontinence, dysuria, discharge Skin: denies: rashes, lesions Musculoskeletal: reports: pain (upper back), arthritis/arthralgias (not painful) Neurological: denies: syncope, seizure - Vital signs BP: 146/59 HR: 72 RR: 23 Tmax: 101.0 rectal Pox: 100% on RA - Physical Exam Constitutional: NAD, awake, alert and oriented, well developed HEENT: normocephalic and atraumatic, grossly normal vision, grossly normal hearing Heart: RRR, normal S1/S2, no murmurs/rubs/gallops Lungs: no respiratory distress, other (crackles at both lung bases) Abdomen: soft, non-tender, bowel sounds present Musculoskeletal: normal structure, normal tone Neurological: no focal deficit Skin: no rash/lesions, good turgor, capillary refill <2 seconds Psychiatric: normal mood and affect FMR H&P: Results - Labs Result Diagrams: 09/26/18 04:37 09/26/18 04:37 Lab results: WBC 21.1 thou/uL (4.8-10.8) H 09/25/18 19:07 Hgb 11.9 g/dL (12.0-16.0) L 09/25/18 19:07 Hct 34.1 % (36.0-47.0) L 09/25/18 19:07 MCV 82.3 fL (78.0-98.0) 09/25/18 19:07 Plt Count 266 thou/uL (130-400) 09/25/18 19:07 Band Neuts % (Manual) 2 % (5-11) L 09/25/18 19:07 Sodium 137 mmol/L (136-145) 09/25/18 19:07 Potassium 2.8 mmol/L (3.5-5.1) L* 09/25/18 19:07 Chloride 102 mmol/L (98-107) 09/25/18 19:07 Carbon Dioxide 24 mmol/L (23-31) 09/25/18 19:07 BUN 18 mg/dL (9.8-20.1) 09/25/18 19:07 Creatinine 0.74 mg/dL (0.6-1.1) 09/25/18 19:07 Glucose 135 mg/dL (83-110) H 09/25/18 19:07 Lactic Acid 1.2 mmol/L (0.5-2.2) 09/25/18 19:07 Calcium 9.3 mg/dL (7.8-10.44) 09/25/18 19:07 Total Bilirubin 1.5 mg/dL (0.2-1.2) H 09/25/18 19:07 AST 18 U/L (5-34) 09/25/18 19:07 ALT 15 U/L (8-55) 09/25/18 19:07 Alkaline Phosphatase 60 U/L (40-150) 09/25/18 19:07 Serum Total Protein 7.4 g/dL (6.0-8.3) 09/25/18 19:07 Albumin 4.0 g/dL (3.4-4.8) 09/25/18 19:07 Lipase Less than 4 U/L (8-78) L 09/25/18 19:07 Urine Ketones Trace mg/dL (Negative) H 09/25/18 19:30 Urine Blood Moderate (Negative) H 09/25/18 19:30 Urine Nitrite Negative (Negative) 09/25/18 19:30 Ur Leukocyte Esterase Small (Negative) H 09/25/18 19:30 Urine RBC 21-50 HPF (0-3) H 09/25/18 19:30 Urine WBC 11-20 HPF (0-3) H 09/25/18 19:30 Ur Squamous Epith Cells 7-10 HPF (0-3) H 09/25/18 19:30 Urine Bacteria 2+ HPF (None Seen) H 09/25/18 19:30 FMR H&P: A/P - Problem List (1) Sepsis Current Visit: Yes Status: Acute Code(s): A41.9 - SEPSIS, UNSPECIFIED ORGANISM (2) UTI (urinary tract infection) Current Visit: Yes Status: Acute (3) Atelectasis Current Visit: Yes Status: Acute (4) Hypokalemia Current Visit: Yes Status: Acute Code(s): E87.6 - HYPOKALEMIA (5) HLD (hyperlipidemia) Current Visit: No Status: Chronic Code(s): E78.5 - HYPERLIPIDEMIA, UNSPECIFIED Qualifiers: Hyperlipidemia type: unspecified Qualified Code(s): E78.5 - Hyperlipidemia , unspecified (6) HTN (hypertension) Current Visit: No Status: Chronic Code(s): I10 - ESSENTIAL (PRIMARY) HYPERTENSION Qualifiers: Hypertension type: essential hypertension Qualified Code(s): I10 - Essential (primary) hypertension (7) Leukocytosis Current Visit: Yes Status: Acute Code(s): D72.829 - ELEVATED WHITE BLOOD CELL COUNT, UNSPECIFIED Qualifiers: Leukocytosis type: unspecified Qualified Code(s): D72.829 - Elevated white blood cell count, unspecified (8) MDD (major depressive disorder) Current Visit: No Status: Chronic Code(s): F32.9 - MAJOR DEPRESSIVE DISORDER , SINGLE EPISODE, UNSPECIFIED - Plan 87 yo F with PMH HTN, bladder prolapse, recurrent UTI is admitted for UTI, meeting sepsis criteria. Sepsis 2/2 recurrent UTI - Leukocytosis-WBC 21, fever 101 rectal, UA positive - failed outpatient treatment with cipro and macrobid (2 days) - previous cultures have growth E coli resistant to bactrim and pseudomonas mendecina. - sees Dr. Gomez, Urology outpatient - BP stable, no tachycardia, appears euvolemic, tolerating PO intake. Will give gentle fluids, LR @ 75. - strict I/Os - Continue Rocephin and levaquin (09/25) - pending procalcitonin, Ucx, Bcx Atelectasis - initial concern for possible pneumonia with hx 2 day non-productive cough. Given one dose azithromycin from ED, will not continue at this time. - CXR showed atelectasis, LLL base - Infection source most likely UTI with atelectasis from pt endorsed decreased activity. - PT/OT, incentive spirometry. Will continue to monitor respiratory status and clinical improvement Hypokalemia - 2.8, received 40 meq replacement - will recheck BMP this evening and replace as needed HTN - continue home metoprolol, amlodipine, aspirin - BP stable HLD - continue home crestor Depression - continue home zoloft Diet: Regular Code: DNR Ppx: SCDs, home nexium Dispo: admit inpatient for sepsis 2/2 UTI FMR H&P: Upper Level - Pertinent history 87 y/o F w/ PMHx of recurrent UTI's being seen by urology presents as a direct admit [place] [facility] [place] and continued fever after initial dx at the end of August. Pt was seen by Urology and dx w/ E. coli UTI and placed on macrobid for this. Went to the ER again on 09/16 and was transitioned to PO cipro and repeat cx drawn at this time which have grown out negative. Pt has hx of recurrent E. coli UTI's resistant to fluoroquinolones and Bactrim. Also w/ relatively recent psuedomonas UTI as well. Pt reports fevers started back again today up to 100.9 rectal in the ER. Also reports some upper back pain which was concerning for possible PNA by ER doctor w/ some increased atelectasis seen on CXR in the lower lobe. Denies any dysuria or abdominal pain. Denies any SOB/CP/ Chills. Reports her urine has been cloudy. Pt reports that she has not been very mobile recently. - Pertinent findings CXR - Atelectasis vs scarring L-Lung base WBC - 21 Neut - 85% U/A - moderate blood, small LE, 2+ bacteria, 11-20 WBC, Nitrite negative K - 2.8 Vitals per internal medicine physician note GEN: NAD, resting in bed comfortably CARD: RRR, no murmur rubs or gallops PULM: Rales bases b/l, no wheezes or rhonci noted GI: BSx4, soft Non-TTP EXT: swan neck deformity hands b/l - Plan Date/Time: 09/25/182112 I B. Santhosh Bartholomew MD, have evaluated this patient and agree with findings/plan as outlined by internal medicine physician resident. Pertinent changes/additions are listed here. 87 y/o F w/: 1) Sepsis 2/2 UTI w/ Failed outpatient treatment - Pt peristent cloudy urine and now fevers w/ elevated WBC and fever to 100.9 degF meeting sepsis criteria - Started on Rocephin and azithromycin at outside ED for concern for possible L- LL PNA and based on prior UCx sensitivities - Pt was on macrobid w/o improvement of her sxs and repeat UCx on 09/16 which was no growth to day. Pt reports fevers started this AM. This makes me wonder if patient has developed a new UTI after initial resolution of the first. As she has had hx of Psuedomonal UTI in the past, will add levaquin in addition to Rocephin to cover both for her MDR E. coli and prior pseudomonal sensitivities. - Repeat UCx and BCx obtained - Initial lactate 1.2 - Will give patient gentle IVF resuscitation as she is currently hemodynamically stable and with concerns for overloading her w/ excessive IVF resuscitation - Strict I/O's to monitor fluid status 2) Possible L-LL PNA vs atelectasis - Patient with overall equal crackles on exam in her bases b/l - I feel this is more likely 2/2 atelectasis rather than PNA. Will d/c azithromycin and transition to levaquin as noted above as she will need coverage for possible pseudomonal UTI as well - Check Pro-nasreen which will likely be positive in setting of infection for #1, but will be used as a baseline that we can trend to ensure we are moving in the right direction in treating her infection - Will consult PT/OT and place on pulm toilet w/ IS to help resolve likely underlying atelectasis - If there is still doubt about this and causes issues w/ discharge abx, it may prove beneficial to obtain a CT-chest to definitively rule this in or out during her hospital stay 3) Hypokalemia - S/p repletion w/ 40 mEq at outsde ER - Will repeat BMP to monitor for resolution - Daily BMP's to monitor and will replace as needed All other chronic medical problems as per internal medicine physician note. Admit: Medical/Inpatient PPx: Lovenox Dispo: Likely > 2 midnights pending culture results Assessment and plan discussed w/ Dr. Sanchez who is in agreement. Attending Addendum - Attending Addendum Date/Time: 09/25/182229 I personally evaluated the patient and discussed the management with Dr. Patino and Dr. Bartholomew I agree with the History, Examination, Assessment and Plan documented above with any addition or exceptions noted below. 87 yo female with history of recurrent UTIs is transferred from outside ER for possible sepsis. Patient with history of cystocele and recurrent urinary tract infections presents initially to outside ER for evaluation of not feeling well, fever of 100.9, and left-sided back pain. Patient recently treated for UTI with Macrobid. Past history of resistant organisms. Patient also reporting cough for the past 2 days. On CXR no significant concerns for pneumonia. Will admit patient to medical. No significant CVAT on exam but ER MD notes pain on left with his exam. Has been started on antibiotics. Will add levoquin for broader coverage, specifically for pseudomonas. Trend labs. Add pro nasreen to trend. Monitor closely. Notify urology in AM. Hunter
[2018-09-25] MEDS ORDERED: Acetaminophen 325 MG TAB PO PRN (21:26)
[2018-09-25] MEDS ORDERED: Ondansetron ODT 4 MG TAB PO PRN (22:01)
[2018-09-25 22:32] VITALS: BMI 31.1
[2018-09-25] MEDS: Lactated Ringer's 1,000 ML IV SCH (22:52)
[2018-09-25] MEDS: diphenhydrAMINE 25 MG CAP PO PRN (22:52)
[2018-09-25] MEDS ORDERED: Polyethylene Glycol 3350 17 GM Packet PO PRN (23:08)
[2018-09-26 00:33] LABS: Anion Gap 16 mmol/L (10-20); BUN (Urea Nitrogen) 17 mg/dL (9.8-20.1); Calc. Creatinine Clearance 63 mL/min (70-130); Calcium 9.2 mg/dL (7.8-10.44); Carbon Dioxide 21 mmol/L (23-31); Chloride 106 mmol/L (98-107); Estimated GFR-MDRD 75; Glucose 130 mg/dL (83-110); Potassium 3.6 mmol/L (3.5-5.1); Sodium 139 mmol/L (136-145)
[2018-09-26 05:22] LABS: #Eosinphils 0.2 thou/uL (0.0-0.7); #Lymphocytes 1.5 thou/uL (1.20-3.40); #Monocytes 0.9 thou/uL (0.11-0.59); #Neutrophils 10.1 thou/uL (1.40-6.50); %Basophils 0.1 % (0.0-1.0); %Eosinophils 1.8 % (0.0-10.0); %Lymphocytes 11.6 % (21.0-51.0); %Neutrophils 79.5 % (42.0-75.0); Hemoglobin 10.4 g/dL (12.0-16.0); Mean Corpuscular HGB CONC 33.5 g/dL (32.0-36.0); Mean Corpuscular Hemoglobin 29.8 pg (27.0-31.0); Mean Corpuscular Volume 88.8 fL (78.0-98.0); Mean Platelet Volume 6.5 fL (7.4-10.4); Platelet Count 287 thou/uL (130-400); RBC Distribution Width 12.7 % (11.5-14.5); Red Blood Cell (RBC) Count 3.49 mill/uL (4.20-5.40); White Blood Cell (WBC) Count 12.7 thou/uL (4.8-10.8)
[2018-09-26 05:38] LABS: Anion Gap 11 mmol/L (10-20); BUN (Urea Nitrogen) 17 mg/dL (9.8-20.1); Calc. Creatinine Clearance 68 mL/min (70-130); Calcium 8.8 mg/dL (7.8-10.44); Carbon Dioxide 23 mmol/L (23-31); Chloride 109 mmol/L (98-107); Estimated GFR-MDRD 82; Glucose 139 mg/dL (83-110); Potassium 3.2 mmol/L (3.5-5.1); Sodium 140 mmol/L (136-145)
--- NOTE | 2018-09-26 05:41 | PDOC.FM ---
- Subjective Subjective: Pt states she is doing well. She denies malaise, fever, SOB, chest pain. She denies dysuria this morning. - Objective MAR Reviewed: Yes Vital Signs & Weight: Vital Signs (12 hours) Temp Pulse Resp BP Pulse Ox 09/26/18 03:54 97.6 F 62 16 153/67 H 98 09/25/18 23:43 97.8 F 67 16 132/60 99 09/25/18 22:30 99 09/25/18 21:30 97.5 F L 88 18 139/63 99 Weight Weight 74.843 kg Result Diagrams: 09/26/18 04:37 09/26/18 04:37 Phys Exam - Physical Examination Constitutional: NAD dry mm Neck: no JVD Crackles on her left lung johnson Cardiovascular: RRR, no significant murmur, no rub Gastrointestinal: soft, non-tender, no distention, positive bowel sounds Musculoskeletal: no edema, pulses present Neurological: moves all 4 limbs Psychiatric: normal affect, A&O x 3 Skin: cap refill <2 seconds Dx/Plan (1) Sepsis Code(s): A41.9 - SEPSIS, UNSPECIFIED ORGANISM Status: Acute (2) UTI (urinary tract infection) Status: Acute (3) Atelectasis Status: Acute (4) Hypokalemia Code(s): E87.6 - HYPOKALEMIA Status: Acute (5) Leukocytosis Code(s): D72.829 - ELEVATED WHITE BLOOD CELL COUNT, UNSPECIFIED Status: Acute Qualifiers: Leukocytosis type: unspecified Qualified Code(s): D72.829 - Elevated white blood cell count, unspecified (6) HLD (hyperlipidemia) Code(s): E78.5 - HYPERLIPIDEMIA, UNSPECIFIED Status: Chronic Qualifiers: Hyperlipidemia type: unspecified Qualified Code(s): E78.5 - Hyperlipidemia , unspecified (7) HTN (hypertension) Code(s): I10 - ESSENTIAL (PRIMARY) HYPERTENSION Status: Chronic Qualifiers: Hypertension type: essential hypertension Qualified Code(s): I10 - Essential (primary) hypertension (8) MDD (major depressive disorder) Code(s): F32.9 - MAJOR DEPRESSIVE DISORDER, SINGLE EPISODE, UNSPECIFIED Status : Chronic - Plan Plan: This is an 87 yo female with a PMH of recurrent UTIs, HLD, HTN, MDD Sepsis 2/2 recurrent UTIs -Sepsis is resolved -Continue Rocephin and levaquin (09/25) -Previous cultures have grown E coli resistance to bactrim and pseudomonas -Sees Dr. Gomez for outpt. urology, will follow up outpt -Failed outpt on cipro and macrobid -IVF and encouraged PO fluid intake Atelectasis -CXR shows atelectasis, LLL base -Procal 1.58, we will trend as needed -PT/OT, IS, to assist in opening lungs -Denies aspiration or dysphagia Hypokalemia -Improving, continue replacing HTN -Continue home metoprolol, amlodipine HLD -Continue home crestor MDD -Continue home zoloft GERD -Home nexium
[2018-09-26 07:35] LABS: Magnesium 1.9 mg/dL (1.6-2.6); Phosphorus 2.7 mg/dL (2.3-4.7)
[2018-09-26] MEDS: Rosuvastatin 10 MG TAB PO SCH (08:16)
[2018-09-26] MEDS: Potassium Chloride 20 MEQ TAB PO SCH ×2 (08:17→16:48)
--- NOTE | 2018-09-26 12:14 | PRG ---
DATE OF SERVICE: 09/26/2018 ADDENDUM: Please add, this is an addendum to the note of Dr. Nas Santana. Ms. Chang is a very pleasant 87-year-old white female patient, who has history of recurrent UTI. She was admitted this time after meeting SIRS criteria. Her only symptom of urinary tract infection however was increased urinary frequency. She denied dysuria. She denied suprapubic tenderness and she denied CVA tenderness. She did, however, have a fever as well upon admission. She is currently on broad-spectrum antibiotics that she has had resistant organisms in the past. In the event, clinically she is improved and we will continue to monitor. Job ID: [id number]
[2018-09-26] MEDS ORDERED: hydrALAZINE 20 MG/ML VIAL SLOW IVP SCH (12:30)
[2018-09-26] MEDS: Lactated Ringer's 1,000 ML IV SCH (14:00)
[2018-09-26] MEDS: Acetaminophen 325 MG TAB PO PRN (16:48)
[2018-09-26] MEDS ORDERED: cefTRIAXone\\ROCEPHIN 1 GM in Sodium Chloride 0.9% 100 ML IVPB SCH (20:00)
[2018-09-26] MEDS ORDERED: diphenhydrAMINE 25 MG CAP PO SCH (21:00)
[2018-09-26] MEDS ORDERED: Acetaminophen 325 MG TAB PO SCH (21:00)
[2018-09-26] MEDS ORDERED: Amlodipine 5 MG TAB PO SCH ×2 (21:00)
[2018-09-27] MEDS ORDERED: Melatonin 3 MG TAB PO PRN (01:57)
[2018-09-27] MEDS: Lactated Ringer's 1,000 ML IV SCH (02:00)
[2018-09-27] MEDS: Acetaminophen 325 MG TAB PO PRN (02:23)
[2018-09-27] MEDS: diphenhydrAMINE 25 MG CAP PO PRN (02:23)
[2018-09-27 04:05] LABS: #Eosinphils 0.3 thou/uL (0.0-0.7); #Lymphocytes 1.5 thou/uL (1.20-3.40); #Monocytes 0.9 thou/uL (0.11-0.59); #Neutrophils 7.3 thou/uL (1.40-6.50); %Basophils 0.3 % (0.0-1.0); %Eosinophils 2.6 % (0.0-10.0); %Lymphocytes 14.5 % (21.0-51.0); %Monocytes 9.3 % (0.0-10.0); %Neutrophils 73.3 % (42.0-75.0); Hemoglobin 10.7 g/dL (12.0-16.0); Mean Corpuscular HGB CONC 34.8 g/dL (32.0-36.0); Mean Corpuscular Volume 88.9 fL (78.0-98.0); Mean Platelet Volume 6.2 fL (7.4-10.4); Platelet Count 294 thou/uL (130-400); RBC Distribution Width 12.5 % (11.5-14.5); Red Blood Cell (RBC) Count 3.46 mill/uL (4.20-5.40)
[2018-09-27 04:23] LABS: Anion Gap 12 mmol/L (10-20); BUN (Urea Nitrogen) 13 mg/dL (9.8-20.1); Calc. Creatinine Clearance 77 mL/min (70-130); Calcium 9.1 mg/dL (7.8-10.44); Carbon Dioxide 24 mmol/L (23-31); Chloride 109 mmol/L (98-107); Estimated GFR-MDRD Greater than 90; Glucose 108 mg/dL (83-110); Potassium 3.6 mmol/L (3.5-5.1); Sodium 141 mmol/L (136-145)
--- NOTE | 2018-09-27 05:25 | PDOC.FM ---
- Subjective Subjective: Pt state she is doing well today. She denies chest pain, SOB, headaches, or abdominal pain. She continues to deny dysuria. - Objective MAR Reviewed: Yes Vital Signs & Weight: Vital Signs (12 hours) Temp Pulse Resp BP BP Pulse Ox 09/27/18 02:00 97.8 F 75 18 170/75 H 09/26/18 20:14 83 148/65 H 09/26/18 20:00 95 09/26/18 18:59 98.2 F 87 16 148/65 H 92 L Weight Weight 74.843 kg I&O: 09/25/18 09/26/18 09/27/18 06:59 06:59 06:59 Intake Total 1551 Balance 1551 Result Diagrams: 09/27/18 03:52 09/27/18 03:52 Phys Exam - Physical Examination Constitutional: NAD HEENT: moist MMs Neck: no JVD, supple Pt has bilateral crackles at lung bases, good air movement Cardiovascular: RRR, no significant murmur Gastrointestinal: soft, non-tender, no distention, positive bowel sounds Musculoskeletal: no edema, pulses present Neurological: moves all 4 limbs Psychiatric: normal affect, A&O x 3 Skin: cap refill <2 seconds Dx/Plan (1) Sepsis Code(s): A41.9 - SEPSIS, UNSPECIFIED ORGANISM Status: Acute (2) UTI (urinary tract infection) Status: Acute (3) Atelectasis Status: Acute (4) Hypokalemia Code(s): E87.6 - HYPOKALEMIA Status: Acute (5) Leukocytosis Code(s): D72.829 - ELEVATED WHITE BLOOD CELL COUNT, UNSPECIFIED Status: Acute Qualifiers: Leukocytosis type: unspecified Qualified Code(s): D72.829 - Elevated white blood cell count, unspecified (6) HLD (hyperlipidemia) Code(s): E78.5 - HYPERLIPIDEMIA, UNSPECIFIED Status: Chronic Qualifiers: Hyperlipidemia type: unspecified Qualified Code(s): E78.5 - Hyperlipidemia , unspecified (7) HTN (hypertension) Code(s): I10 - ESSENTIAL (PRIMARY) HYPERTENSION Status: Chronic Qualifiers: Hypertension type: essential hypertension Qualified Code(s): I10 - Essential (primary) hypertension (8) MDD (major depressive disorder) Code(s): F32.9 - MAJOR DEPRESSIVE DISORDER, SINGLE EPISODE, UNSPECIFIED Status : Chronic - Plan Plan: This is an 87 yo female with a PMH of recurrent UTIs, HLD, HTN, MDD Sepsis 2/2 recurrent UTIs -Sepsis is resolved -Continue Rocephin and levaquin (09/25) plan to change to PO meds upon urine cultures -Previous cultures have grown E coli resistance to bactrim and pseudomonas -Pending blood and urine cultures -Sees Dr. Gomez for outpt. urology, will follow up outpt -Failed outpt on cipro and macrobid -IVF and encouraged PO fluid intake Atelectasis -CXR shows atelectasis, LLL base -Procal 1.58, we will trend as needed -PT/OT, IS, to assist in opening lungs -Denies aspiration or dysphagia Hypokalemia -Improving, continue replacing HTN -Continue home metoprolol, amlodipine HLD -Continue home crestor MDD -Continue home zoloft GERD -Home nexium
[2018-09-27] MEDS: Potassium Chloride 20 MEQ TAB PO SCH (08:56)
[2018-09-27] MEDS: Rosuvastatin 10 MG TAB PO SCH (08:56)
[2018-09-27 11:53] VITALS: TEMP 97.8
[2018-09-27 11:56] VITALS: BP 210/82
--- NOTE | 2018-09-27 13:05 | PRG ---
DATE OF SERVICE: 09/27/2018 ADDENDUM: This is an addendum to the note of Dr. Nas Santana. Ms. Chang remains clinically quite improved. She is awake, alert, in no distress. We are still awaiting final results on her urine culture. We will discharge her on Levaquin and Cefdinir, pending results of urine culture as this will cover her last two identified organisms from her last UTI. Her blood pressure is still slightly elevated, and we will continue to adjust her medications as an outpatient and encourage her to see her PCP for followup. Job ID: [id number]
--- NOTE | 2018-09-28 14:29 | DIS ---
DATE OF ADMISSION: 09/25/2018 DATE OF DISCHARGE: 09/27/2018 ADMITTING ATTENDING: Cheyenne Coats MD DISCHARGE ATTENDING: Eliezer Latham MD CONSULTS: None. PROCEDURES: Two-view chest x-ray showing atelectasis or scarring of the left lung bases, which increased from prior study. Otherwise, no acute processes. PRIMARY DIAGNOSIS: Sepsis secondary to urinary tract infection with fever and white count. SECONDARY DIAGNOSES: Atelectasis, hypokalemia, hypertension, hyperlipidemia, depression. DISCHARGE MEDICATIONS: 1. Cefdinir 300 mg p.o. q.12 hours for 4 days. 2. Amlodipine 5 mg p.o. daily. 3. Potassium chloride 20 mEq b.i.d. 4. Tylenol 650 mg p.o. at bedtime. 5. Aspirin 81 mg p.o. daily. 6. Benadryl 25 mg p.o. at bedtime. 7. Nexium 40 mg p.o. daily. 8. Estradiol vaginal cream. 9. Metoprolol 25 mg p.o. b.i.d. 10. MiraLax 17 g p.o. daily p.r.n. 11. Rosuvastatin 10 mg p.o. daily. 12. Sertraline 50 mg p.o. daily. DISCONTINUED MEDICATIONS: Amlodipine 2.5 mg. BRIEF HISTORY OF PRESENT ILLNESS/HOSPITAL COURSE: This is an 87-year-old female with past medical history of hypertension, bladder prolapse, and recurrent UTIs, who presented after failed in outpatient treatment for UTI with Macrobid and Cipro. The patient met SIRS criteria on admission with infectious source. The patient was admitted and the patient was began on Rocephin and Levaquin to cover previous urine cultures. Blood cultures and urine cultures were obtained at this time. At the time of discharge, both cultures were negative. The patient's outpatient urologist is Dr. Gomez. During the patient' stay, the patient's blood pressure remained elevated and this was likely due to hypertension as well as the patient's anxiety. During her stay, we increased her amlodipine from 2.5 mg to 5 mg and found various elevated blood pressures during that time. The patient's clinical status improved. The patient remained afebrile at the time of discharge. Family and the patient were concerned about elevated blood pressure, however, the patient was instructed to follow up with primary care physician and establish an appointment for tomorrow on 09/28/2018. As stated above, urine cultures did not grow any bacteria. The patient was therefore sent home on cefdinir only for 4 additional days after receiving 3 days of IV antibiotics covering both pseudomonas and E coli. DISPOSITION: Stable. DISCHARGE INSTRUCTIONS: 1. Location: Home. 2. Diet: Regular. 3. Activity: As tolerated. 4. Followup: Follow up with office tomorrow. Job ID: [id number]
== END 2018-09-27 15:40 | disposition home or self-care (01) | DRG 872 ==
LOC: SCSER 18:12 → ONC 20:11
PROVIDERS: ADMIT Student in an Organized Health Care Education/Training Program; ATTEND Student in an Organized Health Care Education/Training Program
DX: A41.9 Sepsis, unspecified organism (principal); J98.11 Atelectasis; N39.0 Urinary tract infection, site not specified; E87.6 Hypokalemia; I10 Essential (primary) hypertension; E78.5 Hyperlipidemia, unspecified; Z79.82 Long term (current) use of aspirin; F41.9 Anxiety disorder, unspecified; F32.9 Major depressive disorder, single episode, unspecified; Z88.0 Allergy status to penicillin; Z88.2 Allergy status to sulfonamides; B96.20 Unspecified Escherichia coli [E. coli] as the cause of diseases classified elsewhere; B96.5 Pseudomonas (aeruginosa) (mallei) (pseudomallei) as the cause of diseases classified elsewhere; K21.9 Gastro-esophageal reflux disease without esophagitis; Z16.23 Resistance to quinolones and fluoroquinolones
CPT/HCPCS: 36415; 71046; 80048; 80053; 81003; 81015; 83605; 83690; 83735; 84100; 84145; 85025; 87040; 87086; 87804; 93005; 96365; 96367; G8978-GP-CJ; G8979-GP-CJ; G8980-GP-CJ; G8987-GO-CI; G8988-GO-CI; G8989-GO-CI; J0360; J0456; J0696; J1956; J7050

== ENCOUNTER 2019-06-14 13:24 | Outpatient (CLI) | payer MEDICARE ==
--- NOTE | 2019-06-14 15:00 | ULT ---
RENAL SONOGRAM: HISTORY: Renal cysts. FINDINGS: The right kidney measures up to 9.2 cm. No hydronephrosis. Exophytic cyst along the lateral cortex measures up to 5.1 x 5.0 cm greatest diameter. The left kidney is 11.7 cm. No hydronephrosis. The urinary bladder shows no focal abnormalities. Postvoid volume calculated at 95 cc. IMPRESSION: 1. Right renal cyst, 5.1 cm greatest diameter. 2. No evidence of urinary tract obstruction. 3. Small to moderate postvoid urinary bladder residual. POS: TPC
== END 2019-06-14 13:25 | disposition home or self-care (01) ==
LOC: SCSULT 13:24
PROVIDERS: ATTEND Urology
DX: N28.1 Cyst of kidney, acquired (principal); R39.198 Other difficulties with micturition; Z87.440 Personal history of urinary (tract) infections
CPT/HCPCS: 76770

== ENCOUNTER 2019-09-18 08:22 | Outpatient (CLI) | payer MEDICARE ==
[2019-09-18] MEDS ORDERED: Iopamidol 370 76% 100 ML VIAL ONE (09:00)
--- NOTE | 2019-09-18 12:23 | CT ---
CT abdomen and pelvis without and with IV contrast HISTORY: Hematuria. COMPARISON: 08/13/2014. FINDINGS: Each renal collecting system, ureter, and urinary bladder are decompressed without stone ev ident. No filling defects are apparent within the opacified renal collecting systems and proximal ureters on the delayed images. Contrast had not reached the urinary bladder. No enhancing masses or f illing defects are apparent. Urinary bladder wall is thickened. Small amount of gas within the nondependent portion of the urinary bladder. Exophytic cyst along the lateral cortex of the right kidney is stable at 5.3 cm. Additional smaller r enal and hepatic cysts appear stable. Tiny nonspecific calcified and noncalcified granulomata at the lung bases. Prominent calcification th roughout the arterial structures. Prominent degenerative changes of the thoracolumbar spine. Diverticula arise from the colon without adjacent inflammation. IMPRESSION: No CT evidence of urinary tract, obstruction, or aggressive mass. Thickening of the urinary bladder wall with small amount of intraluminal gas. Has there been recent i nstrumentation? Consider acute cystitis. Hepatic and renal cysts. Atherosclerosis. Diverticulosis. No evidence of diverticulitis.
== END 2019-09-18 08:23 | disposition home or self-care (01) ==
LOC: SCSCT 08:22
PROVIDERS: ATTEND Internal Medicine
DX: R31.29 Other microscopic hematuria (principal); N28.1 Cyst of kidney, acquired; N32.89 Other specified disorders of bladder; K76.89 Other specified diseases of liver; I70.90 Unspecified atherosclerosis; K57.90 Diverticulosis of intestine, part unspecified, without perforation or abscess without bleeding
CPT/HCPCS: 74178; 82565; Q9967